=== PATIENT | male | born 1965 | race Caucasian/White ===

== ENCOUNTER 2016-04-13 13:20 | Emergency (ER) | payer BC ==
[2016-04-13 13:33] VITALS: BP 154/95
--- NOTE | 2016-04-13 14:21 | EDM.PDOC ---
<Carline Lombardo - Last Filed: 04/13/16 15:04> ED HPI RENAL/ - General Chief Complaint: Genitourinary Problem Stated Complaint: [id number] PAIN IN GROIN AREA Time Seen by Provider: 04/13/16 14:12 Source of Information: Reports: Patient History Limitations: Reports: No limitations - History of Present Illness INITIAL COMMENTS - FREE TEXT/NARRATIVE: Patient states he began having a pain this morning approximately 0800 in the right testicle. He states the pain has progressively gotten worse today. He states the right testicle has progressively gotten more swollen and the pain is radiating up into the groin. He denies fever and chills, vomiting or diarrhea. He admits to nausea with the pain. He admits to a hx. epididymitis. Symptom Onset Date: 04/13/16 Symptom Onset Time: 08:00 Location: Reports: scrotal (right) Quality: Reports: ache Severity: severe Worsens with: Reports: urinating Associated Symptoms: Reports: no other symptoms - Related Data Allergies/ADRs: Allergies Allergy/AdvReac Type Severity Reaction Status Date / Time Penicillins Allergy Cannot Verified 04/13/16 13:30 Remember Home Meds: Home Meds . [No Known Home Meds] 04/13/16 [History] Past Medical History HEENT History: Reports: None Cardiovascular History: Reports: None Respiratory History: Reports: None Gastrointestinal History: Reports: None Genitourinary History: Reports: None Neurological History: Reports: None Psychiatric History: Reports: None Endocrine/Metabolic History: Reports: Obesity/BMI 30+ Hematologic History: Reports: None Immunologic History: Reports: None Oncologic (Cancer) History: Reports: None Dermatologic History: Reports: None - Infectious Disease History Infectious Disease History: Reports: Chicken pox - Past Surgical History Head Surgeries/Procedures: Reports: None Other Musculoskeletal Surgeries/Procedures:: surgury--knee and wrist Social & Family History - Tobacco Use Smoking Status *Q: Never Smoker Second Hand Smoke Exposure: No - Caffeine Use Caffeine Use: Reports: Soda - Recreational Drug Use Recreational Drug Use: No ED ROS GENERAL - Review of Systems Review Of Systems: ROS reveals no pertinent complaints other than HPI. ED EXAM, RENAL/ - Physical Exam Exam: See Below Exam Limited By: No limitations General Appearance: alert, WD/WN, no apparent distress Eye Exam: bilateral eye: normal inspection Ears: normal external exam, normal canal, hearing grossly normal, normal TMs Nose: normal inspection, normal mucosa, no blood Throat/Mouth: Normal inspection, Normal lips, Normal teeth, Normal gums, Normal oropharynx, Normal voice, No airway compromise Head: atraumatic, normocephalic Neck: normal inspection, supple, non-tender, full range of motion Respiratory/Chest: no respiratory distress, lungs clear, normal breath sounds, no accessory muscle use, chest non-tender Cardiovascular: normal peripheral pulses, regular rate, rhythm, no edema, no gallop, no JVD, no murmur, no rub GI/Abdominal: normal bowel sounds, soft, non tender, no organomegaly, no distention, no abnormal bruit, no mass (Male) Exam: No hernia, Scrotal swelling, Scrotum tenderness (R), Testicular tenderness (R) Rectal (Males) Exam: Deferred Back Exam: normal inspection, full range of motion, NT Extremities: normal inspection, normal range of motion, non-tender, normal capillary refill, no pedal edema Neurological: alert, oriented, CN II-XII intact, normal cognition, normal gait, normal reflexes, no motor/sensory deficits Psychiatric: normal affect, normal mood Skin Exam: Warm, Dry, Intact, Normal color, No rash Lymphatic: no adenopathy Course - Vital Signs Last Recorded V/S: Last Vital Signs Temp Pulse 78 04/13/16 13:27 Resp 16 04/13/16 13:27 BP 154/95 H 04/13/16 13:32 Pulse Ox 95 04/13/16 13:27 - Orders/Labs/Meds Labs: Laboratory Tests 04/13/16 Range/Units 15:10 Urine Color Yellow (YELLOW) Urine Appearance Clear (CLEAR) Urine pH 5.5 (5.0-9.0) Ur Specific [place] 1.015 (1.005-1.030) Urine Protein Negative (NEGATIVE) Urine Glucose (UA) Negative (NEGATIVE) Urine Ketones Trace H (NEGATIVE) Urine Occult Blood Negative (NEGATIVE) Urine Nitrite Negative (NEGATIVE) Urine Bilirubin Negative (NEGATIVE) Urine Urobilinogen 0.2 (0.2-1.0) mg/dL Ur Leukocyte Esterase Negative (NEGATIVE) Urine RBC Not seen /HPF Urine WBC Not seen (0-5/HPF) /HPF Ur Epithelial Cells Rare /HPF - Radiology Interpretation Free Text/Narrative:: Testicular US: RIght epididymitis, calcific density in the right testis, small right hydrocele. See Rad report. Departure - Departure Time of Disposition: 15:13 Disposition: Home, Self-Care 01 Condition: fair Clinical Impression: Epididymitis Instructions: Epididymitis Forms: ED Department Discharge Additional Instructions: Rest, Ice, Elevate [place] 325/5m by mouth every 4-6 hours as needed for pain Ciprofloxacin 500m orally twice daily for 14 days. Naprosyn 500m orally twice daily with meals Make an appointment with urology to follow up for epididimytis, small right hydrocele, and a calcific density in the right teste. <Inderjit Thompson - Last Filed: 04/13/16 16:37> Course - Re-Assessments/Exams Free Text/Narrative Re-Assessment/Exam: 04/13/16 16:37 FOR THIS ENCOUNTER THE PATIENT WAS SEEN IN CONJUNCTION WITH [facility] STUDENT CARLINE LOMBARDO. ALL PATIENT CARE AND/OR PROCEDURE(S), DIAGNOSTIC ORDERS, MEDICATION(S) AND TREATMENT ORDERS, DISPOSITION ORDERS/PLANNING, AND DISCHARGE/FOLLOW UP INSTRUCTIONS WERE UNDER MY DIRECT SUPERVISION. jose
== END 2016-04-13 15:36 | disposition home or self-care (01) ==
LOC: DL.ED 13:20
DX: N45.1 Epididymitis (principal); E66.9 Obesity, unspecified; Z88.0 Allergy status to penicillin
CPT/HCPCS: 76870; 81001; 99284

== ENCOUNTER 2020-06-03 07:47 | Inpatient (IN) | payer BC ==
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
[2020-06-03] MEDS ORDERED: Ampicillin/Sulbactam Na 3 GM in Sodium Chloride 0.9% 100 ML IV ONE (08:56)
[2020-06-03] MEDS ORDERED: fentaNYL 100 MCG/2 ML SDV IVPUSH ONE (08:59)
--- NOTE | 2020-06-03 09:04 | CR ---
PROCEDURE INFORMATION: Exam: XR Left Knee Exam date and time: 06/03/2020 8:32 AM Age: 54 years old Clinical indication: Cellulitis; Lower leg; Left; Prior surgery; Surgery date: 6+ months; Surgery type: Knee surgery many years ago; Additional info: Lower extremity cellulitis TECHNIQUE: Imaging protocol: XR Left knee. Views: 1 or 2 views. COMPARISON: No relevant prior studies available. FINDINGS: Bones/joints: Screw tips are embedded in the lateral femoral condyle. The overlying bone is sclerotic and the cortical margin is irregular, but smooth, indicating old healed injury. There is a smoothly corticated ossified body measuring 10 x 7 mm adjacent to the lateral corner of tibial plateau also likely related to old trauma. Lateral joint space narrowing which is approaching pathologic dimensions. Medial and lateral femorotibial degenerative spurring and patellofemoral degenerative spurring. No fracture or joint effusion. No joint body. Soft tissues: Normal. IMPRESSION: 1. Old healed injury involving the lateral knee including femur and tibia. No acute fracture. 2. Tricompartmental knee osteoarthrosis. No osteonecrosis. 3. Normal knee soft tissues.
--- NOTE | 2020-06-03 09:05 | CR ---
PROCEDURE INFORMATION: Exam: XR Left Tibia and Fibula Exam date and time: 06/03/2020 8:35 AM Age: 54 years old Clinical indication: Cellulitis; Lower leg; Left; Prior surgery; Surgery date: 6+ months; Surgery type: Knee surgery many years ago; Additional info: Lower extremity cellulitis TECHNIQUE: Imaging protocol: XR Left tibia and fibula. Views: 2 views. COMPARISON: No relevant prior studies available. FINDINGS: Bones/joints: Normal mineralization and alignment. No fracture, degenerative spur, osseous erosion, joint effusion, joint body or other deformity. Soft tissues: Normal. IMPRESSION: Normal.
[2020-06-03] MEDS ORDERED: Ondansetron 4 MG Tab.DIS PO PRN (09:35)
[2020-06-03] MEDS ORDERED: Ketorolac 30 MG/ML SDV IVPUSH PRN (09:35)
[2020-06-03] MEDS ORDERED: Ibuprofen 600 MG Tab PO PRN (09:35)
[2020-06-03] MEDS: Enoxaparin 40 MG/0.4 ML Syringe SUBCUT SCH (10:20)
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
--- NOTE | 2020-06-03 12:48 | US ---
PROCEDURE INFORMATION: Exam: US Duplex Left Lower Extremity Veins, Limited Exam date and time: 06/03/2020 11:53 AM Age: 54 years old Clinical indication: Pain; Edema, localized; Lower extremity, left; Leg, lower; Additional info: Severe pain and swelling L lower leg TECHNIQUE: Imaging protocol: Real-time Duplex ultrasound of the Left Lower Extremity with 2-D carpio scale, color Doppler flow and spectral waveform analysis with image documentation. Limited exam focused on the left lower extremity veins. COMPARISON: No relevant prior studies available. FINDINGS: Left deep veins: Unremarkable. The common femoral, femoral, proximal profunda femoral and popliteal veins are patent without thrombus. Normal Doppler waveforms. Normal compressibility and/or augmentation response. Left superficial veins: Unremarkable. Saphenofemoral junction is patent without thrombus. Soft tissues: Below the knee there is soft tissue swelling. IMPRESSION: No evidence of deep vein thrombosis.
[2020-06-03] MEDS: Ampicillin/Sulbactam Na 3 GM in Sodium Chloride 0.9% 100 ML IV SCH ×2 (14:43→21:35)
[2020-06-03] MEDS: Sodium Chloride 0.9% 10 ML Syringe FLUSH PRN ×2 (14:45→16:23)
[2020-06-04] MEDS: Ampicillin/Sulbactam Na 3 GM in Sodium Chloride 0.9% 100 ML IV SCH ×4 (03:51→21:20)
[2020-06-04 07:07] LABS: ANION GAP 12.9 mEq/L (7-13)
--- NOTE | 2020-06-04 09:07 | PCM.PN ---
- General Info Date of Service: 06/04/20 Admission Dx/Problem (Free Text): Admission Diagnosis/Problem Admission Diagnosis/Problem Cellulitis Subjective Update: Robi is doing better this morning, although he does state it is still quite painful to stand on that leg. He states his pain was well controlled overnight, was able to get a lot of sleep. Nursing reports no issues overnight, no fevers - Patient Data Vitals - Most Recent: Last Vital Signs Temp 98.5 F 06/04/20 03:55 Pulse 71 06/04/20 03:55 Resp 16 06/04/20 03:55 BP 132/83 06/04/20 03:55 Pulse Ox 96 06/04/20 03:55 Weight - Most Recent: 230 lb 6.4 oz I&O - Last 24 Hours: Intake & Output 06/03/20 06/04/20 06/04/20 22:59 06:59 14:59 Intake Total 1092 500 Balance 1092 500 Lab Results Last 24 Hours: Laboratory Results - last 24 hr 06/03/20 06/03/20 06/04/20 Range/Units 08:14 08:17 06:25 WBC 12.5 H (5.0-10.0) 10^3/uL RBC 5.37 (4.6-6.2) 10^6/uL Hgb 16.1 (14.0-18.0) g/dL Hct 49.3 (40.0-54.0) % MCV 91.8 (80-100) fL MCH 30.0 (27.0-34.0) pg MCHC 32.7 L (33.0-35.0) g/dL Plt Count 238 (150-450) 10^3/uL Neut % (Auto) 80.3 H (42.2-75.2) % Lymph % (Auto) 8.8 L (20.5-50.1) % [place] % (Auto) 9.3 H (2-8) % Eos % (Auto) 1.3 (1.0-3.0) % Baso % (Auto) 0.3 (0.0-1.0) % D-Dimer, Quantitative 417 H (0-400) ng/mL Sodium (136-145) mmol/L Potassium (3.5-5.1) mmol/L Chloride (98-107) mmol/L Carbon Dioxide (21-32) mmol/L Anion Gap (7-13) mEq/L BUN (7-18) mg/dL Creatinine (0.70-1.30) mg/dL Est Cr Clr Drug Dosing mL/min Estimated GFR (MDRD) Glucose (70-99) mg/dL Calcium (8.5-10.1) mg/dL SARS-CoV-2 RNA (TAMMY) Positive H (NEGATIVE) 06/04/20 Range/Units 06:25 WBC (5.0-10.0) 10^3/uL RBC (4.6-6.2) 10^6/uL Hgb (14.0-18.0) g/dL Hct (40.0-54.0) % MCV (80-100) fL MCH (27.0-34.0) pg MCHC (33.0-35.0) g/dL Plt Count (150-450) 10^3/uL Neut % (Auto) (42.2-75.2) % Lymph % (Auto) (20.5-50.1) % [place] % (Auto) (2-8) % Eos % (Auto) (1.0-3.0) % Baso % (Auto) (0.0-1.0) % D-Dimer, Quantitative (0-400) ng/mL Sodium 139 (136-145) mmol/L Potassium 4.9 (3.5-5.1) mmol/L Chloride 101 (98-107) mmol/L Carbon Dioxide 30 (21-32) mmol/L Anion Gap 12.9 (7-13) mEq/L BUN 15 (7-18) mg/dL Creatinine 1.56 H (0.70-1.30) mg/dL Est Cr Clr Drug Dosing 52.37 mL/min Estimated GFR (MDRD) 47 Glucose 110 H (70-99) mg/dL Calcium 8.5 (8.5-10.1) mg/dL SARS-CoV-2 RNA (TAMMY) (NEGATIVE) Moises Results Last 24 Hours: Microbiology 06/03/20 08:17 Aerobic Blood Culture - Preliminary Blood - Venous - Iv Start NO GROWTH AFTER 1 DAY Anaerobic Blood Culture - Final 06/03/20 08:13 Aerobic Blood Culture - Preliminary Blood - Venous - Iv Start NO GROWTH AFTER 1 DAY Anaerobic Blood Culture - Final Med Orders - Current: Current Medications Enoxaparin Sodium (Enoxaparin 40 Mg/0.4 Ml Syringe) 40 mg SUBCUT DAILY [facility] Last Admin: 06/03/20 10:20 Dose: 40 mg Documented by: Ampicillin Sodium/Sulbactam (Sodium 3 gm/ Sodium Chloride) 100 mls @ 100 mls/hr IV Q6H [facility] Last Admin: 06/04/20 03:51 Dose: 100 mls/hr Documented by: Ondansetron HCl (Ondansetron 4 Mg Tab.Dis) 4 mg PO Q6H PRN PRN Reason: nausea, able to take PO Sodium Chloride (Sodium Chloride 0.9% 10 Ml Syringe) 10 ml FLUSH ASDIRECTED PRN PRN Reason: Keep Vein Open Last Admin: 06/03/20 16:23 Dose: 10 ml Documented by: Vancomycin HCl (Pharmacy To Dose - Vancomycin) 1 dose .XX ASDIRECTED [facility] Discontinued Medications Fentanyl (Fentanyl 100 Mcg/2 Ml Sdv) 50 mcg IVPUSH ONETIME ONE Stop: 06/03/20 09:00 Last Admin: 06/03/20 09:12 Dose: 50 mcg Documented by: Ampicillin Sodium/Sulbactam (Sodium 3 gm/ Sodium Chloride) 100 mls @ 100 mls/hr IV ONETIME ONE Stop: 06/03/20 09:55 Last Infusion: 06/03/20 10:10 Dose: Infused Documented by: Vancomycin HCl 1.25 gm/ Sodium (Chloride) 250 mls @ 166.667 mls/hr IV Q12H [facility] Last Admin: 06/03/20 22:41 Dose: 167 mls/hr Documented by: Ibuprofen (Ibuprofen 600 Mg Tab) 600 mg PO Q6H PRN PRN Reason: Pain (mild 1-3) Ketorolac Tromethamine (Ketorolac 30 Mg/Ml Sdv) 30 mg IVPUSH Q6H PRN PRN Reason: Pain (moderate 4-6) Last Admin: 06/03/20 21:31 Dose: 30 mg Documented by: - Exam Physical Findings Comments:: General: Robi is a 54-year-old man in no acute distress Oropharynx is clear, mucous membranes are moist Lungs: Clear to auscultation Left leg: The erythema has cleared for much of the upper part of the affected area, below his knee. It does still involve up to about the midportion of his lower leg. There is still significant swelling of his foot, I would put this at 2-3+ pitting edema. No streaking of any other portion of his leg - Patient Data Lab Results Last 24 hrs: Laboratory Results - last 24 hr 06/03/20 06/03/20 06/04/20 Range/Units 08:14 08:17 06:25 WBC 12.5 H (5.0-10.0) 10^3/uL RBC 5.37 (4.6-6.2) 10^6/uL Hgb 16.1 (14.0-18.0) g/dL Hct 49.3 (40.0-54.0) % MCV 91.8 (80-100) fL MCH 30.0 (27.0-34.0) pg MCHC 32.7 L (33.0-35.0) g/dL Plt Count 238 (150-450) 10^3/uL Neut % (Auto) 80.3 H (42.2-75.2) % Lymph % (Auto) 8.8 L (20.5-50.1) % [place] % (Auto) 9.3 H (2-8) % Eos % (Auto) 1.3 (1.0-3.0) % Baso % (Auto) 0.3 (0.0-1.0) % D-Dimer, Quantitative 417 H (0-400) ng/mL Sodium (136-145) mmol/L Potassium (3.5-5.1) mmol/L Chloride (98-107) mmol/L Carbon Dioxide (21-32) mmol/L Anion Gap (7-13) mEq/L BUN (7-18) mg/dL Creatinine (0.70-1.30) mg/dL Est Cr Clr Drug Dosing mL/min Estimated GFR (MDRD) Glucose (70-99) mg/dL Calcium (8.5-10.1) mg/dL SARS-CoV-2 RNA (TAMMY) Positive H (NEGATIVE) 06/04/20 Range/Units 06:25 WBC (5.0-10.0) 10^3/uL RBC (4.6-6.2) 10^6/uL Hgb (14.0-18.0) g/dL Hct (40.0-54.0) % MCV (80-100) fL MCH (27.0-34.0) pg MCHC (33.0-35.0) g/dL Plt Count (150-450) 10^3/uL Neut % (Auto) (42.2-75.2) % Lymph % (Auto) (20.5-50.1) % [place] % (Auto) (2-8) % Eos % (Auto) (1.0-3.0) % Baso % (Auto) (0.0-1.0) % D-Dimer, Quantitative (0-400) ng/mL Sodium 139 (136-145) mmol/L Potassium 4.9 (3.5-5.1) mmol/L Chloride 101 (98-107) mmol/L Carbon Dioxide 30 (21-32) mmol/L Anion Gap 12.9 (7-13) mEq/L BUN 15 (7-18) mg/dL Creatinine 1.56 H (0.70-1.30) mg/dL Est Cr Clr Drug Dosing 52.37 mL/min Estimated GFR (MDRD) 47 Glucose 110 H (70-99) mg/dL Calcium 8.5 (8.5-10.1) mg/dL SARS-CoV-2 RNA (TAMMY) (NEGATIVE) Result Diagrams: 06/04/20 06:25 06/04/20 06:25 Moises Results Last 24 hrs: Microbiology 06/03/20 08:17 Aerobic Blood Culture - Preliminary Blood - Venous - Iv Start NO GROWTH AFTER 1 DAY Anaerobic Blood Culture - Final 06/03/20 08:13 Aerobic Blood Culture - Preliminary Blood - Venous - Iv Start NO GROWTH AFTER 1 DAY Anaerobic Blood Culture - Final Sepsis Event Note - Evaluation Sepsis Screening Result: No Definite Risk - Focused Exam Vital Signs: Vital Signs Temp Pulse Resp BP Pulse Ox 06/04/20 03:55 98.5 F 71 16 132/83 96 06/04/20 00:00 97.8 F 61 18 114/61 92 L - Problem List & Annotations (1) Cellulitis SNOMED Code(s): 424117870 Code(s): L03.90 - CELLULITIS, UNSPECIFIED Status: Acute Current Visit: Yes Qualifiers: Site of cellulitis: extremity Site of cellulitis of extremity: lower extremity Laterality: left Qualified Code(s): L03.116 - Cellulitis of left lower limb (2) COVID-19 SNOMED Code(s): 668104141 Code(s): U07.1 - COVID-19 Status: Acute Current Visit: Yes Annotation/Comment:: Asymptomatic, but present in context of severe cellulitis (3) Acute kidney injury SNOMED Code(s): 77871481, 84764189 Code(s): N17.9 - ACUTE KIDNEY FAILURE, UNSPECIFIED Status: Acute Priorit y: High Current Visit: Yes - Problem List Review Problem List Initiated/Reviewed/Updated: Yes - My Orders Last 24 Hours: My Active Orders 06/03/20 09:35 Oxygen Therapy [RC] PRN Up ad Jackie [RC] ASDIRECTED VTE/DVT Education [RC] PER UNIT ROUTINE Vital Signs [RC] 00,04,08,12,16,20 Ondansetron [Zofran ODT] 4 mg PO Q6H PRN Resuscitation Status Routine 06/03/20 09:36 Intake and Output [RC] 06,14,22 06/03/20 09:45 Enoxaparin [Lovenox] 40 mg SUBCUT DAILY Pharmacy to Dose - Vancomycin 1 dose .XX ASDIRECTED 06/03/20 10:31 Sodium Chloride 0.9% [Saline Flush] 10 ml FLUSH ASDIRECTED PRN Isolation [COMM] Routine 06/03/20 Lunch Regular Diet [DIET] 06/03/20 15:00 Ampicillin/Sulbactam Na [Unasyn] 3 gm Sodium Chloride 0.9% [Normal Saline] 100 ml IV Q6H 06/05/20 05:11 CBC WITH AUTO DIFF [HEME] AM RENAL FUNCTION PANEL,RFP [CHEM] AM - Plan Plan:: Assessment: 1. Severe cellulitis of the lower left leg 2. Asymptomatic COVID-19, positive through screening 3. Acute kidney injury, differential would include cellulitis as well as administration of IV antibiotic, and presence of COVID-19 Plan: 1. Continue Unasyn, 3 g IV every 6 hours 2. Discontinue vancomycin 3. Continue Lovenox, 40 mg subcu daily for VTE prophylaxis 4. Recheck CBC and renal panel in the a.m., and reassess clinically 5. Anticipate possible discharge tomorrow, if his leg continues to improve
[2020-06-04] MEDS: Enoxaparin 40 MG/0.4 ML Syringe SUBCUT SCH (11:03)
[2020-06-04] MEDS ORDERED: Acetaminophen/HYDROcodone 325-5 MG Tab PO PRN (16:34)
[2020-06-04] MEDS ORDERED: Acetaminophen 325 MG Tab PO PRN (16:35)
[2020-06-04] MEDS ORDERED: Morphine 10 MG/ML SDV IVPUSH PRN (16:36)
[2020-06-04] MEDS: Sodium Chloride 0.9% 10 ML Syringe FLUSH PRN ×2 (21:20→22:39)
[2020-06-05] MEDS: Sodium Chloride 0.9% 10 ML Syringe FLUSH PRN ×2 (03:10→04:24)
[2020-06-05] MEDS: Ampicillin/Sulbactam Na 3 GM in Sodium Chloride 0.9% 100 ML IV SCH ×3 (03:11→11:35)
[2020-06-05 07:14] LABS: ANION GAP 14.6 mEq/L (7-13)
[2020-06-05] MEDS: Enoxaparin 40 MG/0.4 ML Syringe SUBCUT SCH (09:01)
[2020-06-05 09:06] VITALS: BP 134/94; PULSE 77
--- NOTE | 2020-06-05 09:24 | PCM.DCSUM1 ---
Discharge Summary - Hospital Course Free Text/Narrative:: Robi is a 54-year-old man who was admitted 2 days ago with cellulitis in his lower left extremity. There was no inciting injury or event to this. He presented to clinic with a severely swollen and reddened lower left leg. He had had 24 hours of fevers and chills as well as increasing pain in that leg. He was admitted for IV fluid rehydration as well as IV Unasyn. He responded quite well to the IV Unasyn, by the morning of hospital day #1, the swelling had increased slightly and his pain had started to decrease. By the morning of hospital day #2, he was able to walk on this normally, and swelling had significantly decreased. The margin of erythema had moved to just below his knee down all the way towards his ankle. He was 24 hours afebrile as of the morning of hospital day #2 - Discharge Data Discharge Date: 06/05/20 Discharge Disposition: Home, Self-Care 01 Condition: Good - Referral to Home Health Primary Care Physician: PCP Unobtainable - Discharge Diagnosis/Problem(s) (1) Cellulitis SNOMED Code(s): 780918802 ICD Code: L03.90 - CELLULITIS, UNSPECIFIED Status: Acute Qualifiers: Site of cellulitis: extremity Site of cellulitis of extremity: lower extremity Laterality: left Qualified Code(s): L03.116 - Cellulitis of left lower limb (2) COVID-19 SNOMED Code(s): 354621041 ICD Code: U07.1 - COVID-19 Status: Acute Problem Details: Asymptomatic, but present in context of severe cellulitis (3) Acute kidney injury SNOMED Code(s): 16599224, 70711375 ICD Code: N17.9 - ACUTE KIDNEY FAILURE, UNSPECIFIED Status: Acute Priority: High - Discharge Plan *PRESCRIPTION DRUG MONITORING PROGRAM REVIEWED*: Not Applicable *COPY OF PRESCRIPTION DRUG MONITORING REPORT IN PATIENT [place]: Not Applicable Prescriptions/Med Rec: Amoxicillin/Clavulanate K [Augmentin 875-125 MG] 1 tab PO BID 10 Days #20 tablet Home Medications: Home Meds Amoxicillin/Clavulanate K [Augmentin 875-125 MG] 1 tab PO BID 10 Days #20 tablet 06/05/20 [Rx] Patient Handouts: Amoxicillin; Clavulanic Acid Tablets, Cellulitis, Adult Referrals: Rich Mcgrath MD [Physician] - - Discharge Summary/Plan Comment DC Time >30 min.: No Discharge Summary/Plan Comment: Discharge diagnoses: 1. 54-year-old man with cellulitis of the left lower extremity Discharge plan: 1. He is sent home on Augmentin, 825 mg twice daily x10 days. He will follow-up with his primary care physician later this week or early next week. He was given careful instructions to follow-up immediately in the clinic or ER if the redness and pain returns, or does not continue to improve on a daily basis - Patient Data Vitals - Most Recent: Last Vital Signs Temp 97.6 F 06/05/20 08:00 Pulse 77 06/05/20 08:00 Resp 19 06/05/20 08:00 BP 134/94 H 06/05/20 08:00 Pulse Ox 97 06/05/20 08:00 Weight - Most Recent: 230 lb 6.4 oz I&O - Last 24 hours: Intake & Output 06/04/20 06/05/20 06/05/20 22:59 06:59 14:59 Intake Total 534 203 Balance 534 203 Lab Results - Last 24 hrs: Laboratory Results - last 24 hr 06/05/20 06/05/20 Range/Units 06:35 06:35 WBC 9.1 (5.0-10.0) 10^3/uL RBC 5.46 (4.6-6.2) 10^6/uL Hgb 16.2 (14.0-18.0) g/dL Hct 49.8 (40.0-54.0) % MCV 91.2 (80-100) fL MCH 29.7 (27.0-34.0) pg MCHC 32.5 L (33.0-35.0) g/dL Plt Count 270 (150-450) 10^3/uL Neut % (Auto) 66.9 (42.2-75.2) % Lymph % (Auto) 19.4 L (20.5-50.1) % [place] % (Auto) 10.5 H (2-8) % Eos % (Auto) 2.9 (1.0-3.0) % Baso % (Auto) 0.3 (0.0-1.0) % Sodium 139 (136-145) mmol/L Potassium 4.6 (3.5-5.1) mmol/L Chloride 101 (98-107) mmol/L Carbon Dioxide 28 (21-32) mmol/L Anion Gap 14.6 H (7-13) mEq/L BUN 15 (7-18) mg/dL Creatinine 1.36 H (0.70-1.30) mg/dL Est Cr Clr Drug Dosing 60.07 mL/min Estimated GFR (MDRD) 55 BUN/Creatinine Ratio 11.0 (No establ ref range) Glucose 104 H (70-99) mg/dL Calcium 8.7 (8.5-10.1) mg/dL Phosphorus 2.8 (2.6-4.7) mg/dL Albumin 2.9 L (3.4-5.0) g/dL ÁNGEL Results - Last 24 hrs: Microbiology 06/03/20 08:17 Aerobic Blood Culture - Preliminary Blood - Venous - Iv Start NO GROWTH AFTER 2 DAYS Anaerobic Blood Culture - Final 06/03/20 08:13 Aerobic Blood Culture - Preliminary Blood - Venous - Iv Start NO GROWTH AFTER 2 DAYS Anaerobic Blood Culture - Final Med Orders - Current: Current Medications Acetaminophen (Acetaminophen 325 Mg Tab) 650 mg PO Q6H PRN PRN Reason: Pain (mild 1-3) Hydrocodone Bitart/Acetaminophen (Acetaminophen/Hydrocodone 325-5 Mg Tab) 1 tab PO Q6H PRN PRN Reason: Pain (moderate 4-6) Enoxaparin Sodium (Enoxaparin 40 Mg/0.4 Ml Syringe) 40 mg SUBCUT DAILY [facility] Last Admin: 06/05/20 09:01 Dose: 40 mg Documented by: Ampicillin Sodium/Sulbactam (Sodium 3 gm/ Sodium Chloride) 100 mls @ 100 mls/hr IV Q6H [facility] Last Admin: 06/05/20 09:00 Dose: 100 mls/hr Documented by: Morphine Sulfate (Morphine 10 Mg/Ml Sdv) 8 mg IVPUSH Q4H PRN PRN Reason: Pain (severe 7-10) Ondansetron HCl (Ondansetron 4 Mg Tab.Dis) 4 mg PO Q6H PRN PRN Reason: nausea, able to take PO Sodium Chloride (Sodium Chloride 0.9% 10 Ml Syringe) 10 ml FLUSH ASDIRECTED PRN PRN Reason: Keep Vein Open Last Admin: 06/05/20 04:24 Dose: 10 ml Documented by: Discontinued Medications Fentanyl (Fentanyl 100 Mcg/2 Ml Sdv) 50 mcg IVPUSH ONETIME ONE Stop: 06/03/20 09:00 Last Admin: 06/03/20 09:12 Dose: 50 mcg Documented by: Ampicillin Sodium/Sulbactam (Sodium 3 gm/ Sodium Chloride) 100 mls @ 100 mls/hr IV ONETIME ONE Stop: 06/03/20 09:55 Last Infusion: 06/03/20 10:10 Dose: Infused Documented by: Vancomycin HCl 1.25 gm/ Sodium (Chloride) 250 mls @ 166.667 mls/hr IV Q12H [facility] Last Admin: 06/03/20 22:41 Dose: 167 mls/hr Documented by: Ibuprofen (Ibuprofen 600 Mg Tab) 600 mg PO Q6H PRN PRN Reason: Pain (mild 1-3) Ketorolac Tromethamine (Ketorolac 30 Mg/Ml Sdv) 30 mg IVPUSH Q6H PRN PRN Reason: Pain (moderate 4-6) Last Admin: 06/03/20 21:31 Dose: 30 mg Documented by: Vancomycin HCl (Pharmacy To Dose - Vancomycin) 1 dose .XX ASDIRECTED [facility]
== END 2020-06-05 12:40 | disposition home or self-care (01) | DRG 383 ==
LOC: DL.ED 07:47 → DL.MS 08:56 → UNDOADMIN 08:56 → DL.MS 19:23
PROVIDERS: ADMIT Family Medicine; ATTEND Family Medicine
PROC: 8E0ZXY6 Isolation (ICD-10-PCS; principal; 2020-06-03)
DX: L03.116 Cellulitis of left lower limb (principal); U07.1 COVID-19; N17.9 Acute kidney failure, unspecified; Z90.49 Acquired absence of other specified parts of digestive tract; Z98.890 Other specified postprocedural states
CPT/HCPCS: 36415; 73560-LT; 73590-LT; 80048; 80053; 80069; 83605; 85025; 85379; 86140; 87040; 93971; 99284; 99284-25; J0295; J1650; J1885; J3010; J3370; J7050; U0002

== ENCOUNTER 2020-12-30 22:46 | Inpatient (IN) | payer BC ==
[2020-12-30] MEDS: Sodium Chloride 0.9% 10 ML Syringe FLUSH PRN (23:21)
[2020-12-30 23:45] LABS: ANION GAP 14.2 mEq/L (7-13)
[2020-12-31] MEDS: Sodium Chloride 0.9% 1,000 ML IV ONE ×2 (00:13→02:03)
--- NOTE | 2020-12-31 00:17 | EDM.PDOC ---
ED HPI GENERAL MEDICAL PROBLEM - General Chief Complaint: Skin Complaint Stated Complaint: CELLUTITUS Time Seen by Provider: 12/30/20 23:15 Source of Information: Reports: Patient History Limitations: Reports: No Limitations - History of Present Illness INITIAL COMMENTS - FREE TEXT/NARRATIVE: 55 y/o M c/o sudden onset reddness and swelling of his L lower leg that started this morning. initially the redness began around his ankle and throughout the day progressed uo to just below the knee. Similar cellulitis in the past. Reports subjective fever, chills. Has been taking tylenol today. Denies other medical hx, meds, allergies. 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 Denies miller, vision prob, cp, db, abd pn, other extremity concerns. Left Lower Leg Pain Score (Numeric/FACES): 6 - Related Data Allergies Allergy/AdvReac Type Severity Reaction Status Date / Time Penicillins Allergy Cannot Verified 12/30/20 23:05 Remember Home Meds: Home Meds . [No Known Home Meds] 12/30/20 [History] Past Medical History HEENT History: Reports: None Cardiovascular History: Reports: None Respiratory History: Reports: None Gastrointestinal History: Reports: None Genitourinary History: Reports: None Musculoskeletal History: Reports: None Neurological History: Reports: None Psychiatric History: Reports: None Endocrine/Metabolic History: Reports: Obesity/BMI 30+ Hematologic History: Reports: None Immunologic History: Reports: None Oncologic (Cancer) History: Reports: None Dermatologic History: Reports: None - Infectious Disease History Infectious Disease History: Reports: Chicken Pox - Past Surgical History Head Surgeries/Procedures: Reports: None HEENT Surgical History: Reports: Adenoidectomy, Myringotomy w Tube(s) Cardiovascular Surgical History: Reports: None Respiratory Surgical History: Reports: None GI Surgical History: Reports: None Endocrine Surgical History: Reports: None Neurological Surgical History: Reports: None Musculoskeletal Surgical History: Reports: Other (See Below) Other Musculoskeletal Surgeries/Procedures:: surgury--knee and wrist Social & Family History - Family History Family Medical History: No Pertinent Family History - Tobacco Use Tobacco Use Status *Q: Never Tobacco User - Caffeine Use Caffeine Use: Reports: Coffee - Recreational Drug Use Recreational Drug Use: No ED ROS GENERAL - Review of Systems Review Of Systems: Comprehensive ROS is negative, except as noted in HPI. ED EXAM, SKIN/RASH Exam: See Below Exam Limited By: No Limitations General Appearance: Alert, No Apparent Distress Throat/Mouth: Normal Inspection, Normal Lips, Normal Teeth, Normal Gums, Normal Oropharynx, Normal Voice, No Airway Compromise Head: Atraumatic, Normocephalic Neck: Normal Inspection, Supple, Non-Tender, Full Range of Motion Respiratory/Chest: No Respiratory Distress, Lungs Clear, Normal Breath Sounds, No Accessory Muscle Use, Chest Non-Tender Cardiovascular: Normal Peripheral Pulses, Regular Rate, Rhythm, No Edema, No Gallop, No JVD, No Murmur, No Rub GI/Abdominal: Soft, Non-Tender (Male) Exam: Deferred Rectal (Males) Exam: Deferred Back Exam: Normal Inspection, Full Range of Motion Extremities: Other (erythematous rash extending from L ankle up to just below the knee more anterior than posterior involvement. ) Neurological: Alert, Oriented, CN II-XII Intact, Normal Cognition, Normal Gait, Normal Reflexes, No Motor/Sensory Deficits Skin: Warm, Dry, Intact Course - Vital Signs Last Recorded V/S: Last Vital Signs Temp 99.1 F 12/30/20 23:06 Pulse 92 12/30/20 23:06 Resp 16 12/30/20 23:06 BP 137/80 12/30/20 23:06 Pulse Ox 96 12/30/20 23:06 - Orders/Labs/Meds Orders: Active Orders 24 hr Category Date Time Status Admission Diagnosis [ADT] Routine ADT 12/31/20 00:16 Ordered Admission Status [Patient Status] [ADT] Routine ADT 12/31/20 00:16 Active Peripheral IV Care [RC] . DIRECTED Care 12/30/20 23:12 Active CULTURE BLOOD [BC] Stat Lab 12/30/20 23:20 Received CULTURE BLOOD [BC] Stat Lab 12/30/20 23:30 Received REFLEX LACTIC ACID YES OR NO [CHEM] Routine Lab 12/30/20 23:56 Received Sodium Chloride 0.9% [Normal Saline] 1,000 ml Med 12/30/20 23:57 Active IV .BOLUS Sodium Chloride 0.9% [Saline Flush] Med 12/30/20 23:12 Active 10 ml FLUSH ASDIRECTED PRN Vancomycin 1,500 mg Med 12/30/20 23:55 Active Sodium Chloride 0.9% [Normal Saline] 500 ml IV ONETIME Blood Culture x2 Reflex Set [OM.PC] Stat Oth 12/30/20 23:12 Ordered Peripheral IV Insertion Adult [OM.PC] Routine Oth 12/30/20 23:12 Ordered Medication Orders Vancomycin HCl 1,500 mg/ (Sodium Chloride) 500 mls @ 333.333 mls/hr IV ONETIME ONE Stop: 12/31/20 01:24 Last Admin: 12/31/20 00:13 Dose: 333.333 mls/hr Documented by: KIM Sodium Chloride (Normal Saline) 1,000 mls @ 999 mls/hr IV .BOLUS ONE Stop: 12/31/20 00:57 Last Admin: 12/31/20 00:13 Dose: 999 mls/hr Documented by: KIM Sodium Chloride (Sodium Chloride 0.9% 10 Ml Syringe) 10 ml FLUSH ASDIRECTED PRN PRN Reason: Keep Vein Open Last Admin: 12/30/20 23:21 Dose: 10 ml Documented by: KIM Labs: Laboratory Tests 12/30/20 12/30/20 12/30/20 Range/Units 23:20 23:20 23:20 WBC 24.0 H (5.0-10.0) 10^3/uL RBC 5.33 (4.6-6.2) 10^6/uL Hgb 16.3 (14.0-18.0) g/dL Hct 48.2 (40.0-54.0) % MCV 90.4 (80-100) fL MCH 30.6 (27.0-34.0) pg MCHC 33.8 (33.0-35.0) g/dL Plt Count 311 (150-450) 10^3/uL Neut % (Auto) 93.0 H (42.2-75.2) % Lymph % (Auto) 3.1 L (20.5-50.1) % [place] % (Auto) 3.8 (2-8) % Eos % (Auto) 0.0 L (1.0-3.0) % Baso % (Auto) 0.1 (0.0-1.0) % D-Dimer, Quantitative (0-400) ng/mL Sodium 134 L (136-145) mmol/L Potassium 4.2 (3.5-5.1) mmol/L Chloride 100 (98-107) mmol/L Carbon Dioxide 24 (21-32) mmol/L Anion Gap 14.2 H (7-13) mEq/L BUN 18 (7-18) mg/dL Creatinine 1.64 H (0.70-1.30) mg/dL Est Cr Clr Drug Dosing 49.24 mL/min Estimated GFR (MDRD) 44 BUN/Creatinine Ratio 11.0 (No establ ref range) Glucose 225 H (70-99) mg/dL Lactic Acid 2.6 H* (0.4-2.0) mmol/L Calcium 8.8 (8.5-10.1) mg/dL Total Bilirubin 1.5 H (0.2-1.0) mg/dL AST 14 L (15-37) U/L ALT 26 (16-63) U/L Alkaline Phosphatase 61 (46-116) U/L C-Reactive Protein 5.7 H (0.0-0.9) mg/dL Total Protein 6.6 (6.4-8.2) g/dL Albumin 3.5 (3.4-5.0) g/dL Globulin 3.1 Albumin/Globulin Ratio 1.1 12/30/ Range/Units 23:20 WBC (5.0-10.0) 10^3/uL RBC (4.6-6.2) 10^6/uL Hgb (14.0-18.0) g/dL Hct (40.0-54.0) % MCV (80-100) fL MCH (27.0-34.0) pg MCHC (33.0-35.0) g/dL Plt Count (150-450) 10^3/uL Neut % (Auto) (42.2-75.2) % Lymph % (Auto) (20.5-50.1) % [place] % (Auto) (2-8) % Eos % (Auto) (1.0-3.0) % Baso % (Auto) (0.0-1.0) % D-Dimer, Quantitative 267 (0-400) ng/mL Sodium (136-145) mmol/L Potassium (3.5-5.1) mmol/L Chloride (98-107) mmol/L Carbon Dioxide (21-32) mmol/L Anion Gap (7-13) mEq/L BUN (7-18) mg/dL Creatinine (0.70-1.30) mg/dL Est Cr Clr Drug Dosing mL/min Estimated GFR (MDRD) BUN/Creatinine Ratio (No establ ref range) Glucose (70-99) mg/dL Lactic Acid (0.4-2.0) mmol/L Calcium (8.5-10.1) mg/dL Total Bilirubin (0.2-1.0) mg/dL AST (15-37) U/L ALT (16-63) U/L Alkaline Phosphatase (46-116) U/L C-Reactive Protein (0.0-0.9) mg/dL Total Protein (6.4-8.2) g/dL Albumin (3.4-5.0) g/dL Globulin Albumin/Globulin Ratio Meds: Medications Generic Name Dose Route Start Last Admin Trade Name Freq PRN Reason Stop Dose Admin Vancomycin HCl 1,500 mg/ 500 mls @ 333.333 mls/hr 12/30/20 23:55 12/31/20 00:13 Sodium Chloride IV 12/31/20 01:24 333.333 mls/hr ONETIME ONE Administration Sodium Chloride 1,000 mls @ 999 mls/hr 12/30/20 23:57 12/31/20 00:13 Normal Saline IV 12/31/20 00:57 999 mls/hr .BOLUS ONE Administration Sodium Chloride 10 ml 12/30/20 23:12 12/30/20 23:21 Sodium Chloride 0.9% 10 Ml Syringe FLUSH 10 ml ASDIRECTED PRN Administration Keep Vein Open - Re-Assessments/Exams Free Text/Narrative Re-Assessment/Exam: 12/31/20 00:10 The pt has a fast progressing cellulitis which he reports is similar to his previous cellulitis. I consulted with Dr. James who agreed to admit the pt for inpatient treatment of his cellulitis. Departure - Departure Time of Disposition: 00:23 Disposition: Home, Self-Care 01 Condition: Fair Clinical Impression: Cellulitis Qualifiers: Site of cellulitis: extremity Site of cellulitis of extremity: lower extremity Laterality: left Qualified Code(s): L03.116 - Cellulitis of left lower limb Elevated WBC count Qualifiers: Leukocytosis type: unspecified Qualified Code(s): D72.829 - Elevated white blood cell count, unspecified - Discharge Information *PRESCRIPTION DRUG MONITORING PROGRAM REVIEWED*: Not Applicable *COPY OF PRESCRIPTION DRUG MONITORING REPORT IN PATIENT [place]: Not Applicable Forms: ED Department Discharge Sepsis Event Note (ED) - Evaluation Sepsis Screening Result: No Definite Risk - Focused Exam Vital Signs: Vital Signs Temp Pulse Resp BP Pulse Ox 12/30/20 23:06 99.1 F 92 16 137/80 96 - My Orders Last 24 Hours: My Active Orders 12/30/20 23:12 Peripheral IV Care [RC] . DIRECTED Sodium Chloride 0.9% [Saline Flush] 10 ml FLUSH ASDIRECTED PRN Blood Culture x2 Reflex Set [OM.PC] Stat Peripheral IV Insertion Adult [OM.PC] Routine 12/30/20 23:20 CULTURE BLOOD [BC] Stat 12/30/20 23:30 CULTURE BLOOD [BC] Stat 12/30/20 23:55 Vancomycin 1,500 mg Sodium Chloride 0.9% [Normal Saline] 500 ml IV ONETIME 12/30/20 23:56 REFLEX LACTIC ACID YES OR NO [CHEM] Routine 12/30/20 23:57 Sodium Chloride 0.9% [Normal Saline] 1,000 ml IV .BOLUS 12/31/20 00:16 Admission Diagnosis [ADT] Routine Admission Status [Patient Status] [ADT] Routine - Assessment/Plan Last 24 Hours: My Active Orders 12/30/20 23:12 Peripheral IV Care [RC] . DIRECTED Sodium Chloride 0.9% [Saline Flush] 10 ml FLUSH ASDIRECTED PRN Blood Culture x2 Reflex Set [OM.PC] Stat Peripheral IV Insertion Adult [OM.PC] Routine 12/30/20 23:20 CULTURE BLOOD [BC] Stat 12/30/20 23:30 CULTURE BLOOD [BC] Stat 12/30/20 23:55 Vancomycin 1,500 mg Sodium Chloride 0.9% [Normal Saline] 500 ml IV ONETIME 12/30/20 23:56 REFLEX LACTIC ACID YES OR NO [CHEM] Routine 12/30/20 23:57 Sodium Chloride 0.9% [Normal Saline] 1,000 ml IV .BOLUS 12/31/20 00:16 Admission Diagnosis [ADT] Routine Admission Status [Patient Status] [ADT] Routine
[2020-12-31] MEDS ORDERED: Ondansetron 4 MG Tab.DIS PO PRN (01:19)
[2020-12-31] MEDS ORDERED: Docusate Sodium 100 MG Cap PO PRN (01:19)
[2020-12-31] MEDS ORDERED: Zolpidem 5 MG Tab PO PRN (01:19)
[2020-12-31] MEDS ORDERED: Acetaminophen/HYDROcodone 325-10 MG Tab PO PRN (01:19)
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
[2020-12-31] MEDS ORDERED: Levofloxacin/Dextrose 5%-Water 750 MG in Premix Bag 1 BAG IV SCH (01:30)
[2020-12-31] MEDS: Sodium Chloride 0.9% 1,000 ML IV SCH ×2 (01:55→23:11)
[2020-12-31] MEDS: Heparin Sodium 5,000 Units/ML Vial SUBCUT SCH ×3 (06:08→21:25)
[2020-12-31] MEDS: Acetaminophen 325 MG Tab PO PRN ×2 (06:14→18:37)
[2020-12-31 07:42] LABS: ANION GAP 11.1 mEq/L (7-13)
[2020-12-31] MEDS ORDERED: Water For Injection, Sterile 40 ML ONE (12:02)
--- NOTE | 2020-12-31 15:34 | PCM.PN ---
- General Info Date of Service: 12/31/20 Admission Dx/Problem (Free Text): Admission Diagnosis/Problem Admission Diagnosis/Problem Cellulitis Functional Status: Reports: Tolerating Diet - Review of Systems General: Reports: Fever (low grade) Pulmonary: Denies: Shortness of Breath Cardiovascular: Reports: Edema (left leg). Denies: Chest Pain Gastrointestinal: Denies: Abdominal Pain Genitourinary: Denies: Dysuria Musculoskeletal: Reports: Foot Pain (left leg) Neurological: Denies: Confusion - Patient Data Vitals - Most Recent: Last Vital Signs Temp 96.8 F L 12/31/20 12:00 Pulse 63 12/31/20 12:00 Resp 20 12/31/20 12:00 BP 114/65 12/31/20 12:00 Pulse Ox 96 12/31/20 12:00 Weight - Most Recent: 225 lb I&O - Last 24 Hours: Intake & Output 12/31/20 12/31/20 12/31/20 06:59 14:59 22:59 Intake Total 1950 600 Balance 1950 600 Lab Results Last 24 Hours: Laboratory Results - last 24 hr 12/30/20 12/30/20 12/30/20 Range/Units 23:20 23:20 23:20 WBC 24.0 H (5.0-10.0) 10^3/uL RBC 5.33 (4.6-6.2) 10^6/uL Hgb 16.3 (14.0-18.0) g/dL Hct 48.2 (40.0-54.0) % MCV 90.4 (80-100) fL MCH 30.6 (27.0-34.0) pg MCHC 33.8 (33.0-35.0) g/dL Plt Count 311 (150-450) 10^3/uL Neut % (Auto) 93.0 H (42.2-75.2) % Lymph % (Auto) 3.1 L (20.5-50.1) % [place] % (Auto) 3.8 (2-8) % Eos % (Auto) 0.0 L (1.0-3.0) % Baso % (Auto) 0.1 (0.0-1.0) % D-Dimer, Quantitative (0-400) ng/mL Sodium 134 L (136-145) mmol/L Potassium 4.2 (3.5-5.1) mmol/L Chloride 100 (98-107) mmol/L Carbon Dioxide 24 (21-32) mmol/L Anion Gap 14.2 H (7-13) mEq/L BUN 18 (7-18) mg/dL Creatinine 1.64 H (0.70-1.30) mg/dL Est Cr Clr Drug Dosing 49.24 mL/min Estimated GFR (MDRD) 44 BUN/Creatinine Ratio 11.0 (No establ ref range) Glucose 225 H (70-99) mg/dL Lactic Acid 2.6 H* (0.4-2.0) mmol/L Calcium 8.8 (8.5-10.1) mg/dL Total Bilirubin 1.5 H (0.2-1.0) mg/dL AST 14 L (15-37) U/L ALT 26 (16-63) U/L Alkaline Phosphatase 61 (46-116) U/L C-Reactive Protein 5.7 H (0.0-0.9) mg/dL Total Protein 6.6 (6.4-8.2) g/dL Albumin 3.5 (3.4-5.0) g/dL Globulin 3.1 Albumin/Globulin Ratio 1.1 SARS CoV-2 RNA Rapid TAMMY (NEGATIVE) 12/30/20 12/31/20 12/31/20 Range/Units 23:20 00:20 06:30 WBC 19.2 H (5.0-10.0) 10^3/uL RBC 4.96 (4.6-6.2) 10^6/uL Hgb 15.1 (14.0-18.0) g/dL Hct 45.2 (40.0-54.0) % MCV 91.1 (80-100) fL MCH 30.4 (27.0-34.0) pg MCHC 33.4 (33.0-35.0) g/dL Plt Count 289 (150-450) 10^3/uL Neut % (Auto) 90.7 H (42.2-75.2) % Lymph % (Auto) 5.1 L (20.5-50.1) % [place] % (Auto) 4.1 (2-8) % Eos % (Auto) 0.0 L (1.0-3.0) % Baso % (Auto) 0.1 (0.0-1.0) % D-Dimer, Quantitative 267 (0-400) ng/mL Sodium (136-145) mmol/L Potassium (3.5-5.1) mmol/L Chloride (98-107) mmol/L Carbon Dioxide (21-32) mmol/L Anion Gap (7-13) mEq/L BUN (7-18) mg/dL Creatinine (0.70-1.30) mg/dL Est Cr Clr Drug Dosing mL/min Estimated GFR (MDRD) BUN/Creatinine Ratio (No establ ref range) Glucose (70-99) mg/dL Lactic Acid (0.4-2.0) mmol/L Calcium (8.5-10.1) mg/dL Total Bilirubin (0.2-1.0) mg/dL AST (15-37) U/L ALT (16-63) U/L Alkaline Phosphatase (46-116) U/L C-Reactive Protein (0.0-0.9) mg/dL Total Protein (6.4-8.2) g/dL Albumin (3.4-5.0) g/dL Globulin Albumin/Globulin Ratio SARS CoV-2 RNA Rapid TAMMY Negative (NEGATIVE) 12/31/20 12/31/20 Range/Units 06:30 08:15 WBC (5.0-10.0) 10^3/uL RBC (4.6-6.2) 10^6/uL Hgb (14.0-18.0) g/dL Hct (40.0-54.0) % MCV (80-100) fL MCH (27.0-34.0) pg MCHC (33.0-35.0) g/dL Plt Count (150-450) 10^3/uL Neut % (Auto) (42.2-75.2) % Lymph % (Auto) (20.5-50.1) % [place] % (Auto) (2-8) % Eos % (Auto) (1.0-3.0) % Baso % (Auto) (0.0-1.0) % D-Dimer, Quantitative (0-400) ng/mL Sodium 134 L (136-145) mmol/L Potassium 4.1 (3.5-5.1) mmol/L Chloride 101 (98-107) mmol/L Carbon Dioxide 26 (21-32) mmol/L Anion Gap 11.1 (7-13) mEq/L BUN 16 (7-18) mg/dL Creatinine 1.39 H (0.70-1.30) mg/dL Est Cr Clr Drug Dosing 58.09 mL/min Estimated GFR (MDRD) 53 BUN/Creatinine Ratio (No establ ref range) Glucose 132 H (70-99) mg/dL Lactic Acid 1.2 (0.4-2.0) mmol/L Calcium 8.6 (8.5-10.1) mg/dL Total Bilirubin (0.2-1.0) mg/dL AST (15-37) U/L ALT (16-63) U/L Alkaline Phosphatase (46-116) U/L C-Reactive Protein (0.0-0.9) mg/dL Total Protein (6.4-8.2) g/dL Albumin (3.4-5.0) g/dL Globulin Albumin/Globulin Ratio SARS CoV-2 RNA Rapid TAMMY (NEGATIVE) Med Orders - Current: Current Medications Acetaminophen (Acetaminophen 325 Mg Tab) 650 mg PO Q4H PRN PRN Reason: Pain (Mild 1-3)/fever Last Admin: 12/31/20 06:14 Dose: 650 mg Documented by: Hydrocodone Bitart/Acetaminophen (Acetaminophen/Hydrocodone 325-10 Mg Tab) 1 tab PO Q4H PRN PRN Reason: Pain (moderate 4-6) Docusate Sodium (Docusate Sodium 100 Mg Cap) 100 mg PO BID PRN PRN Reason: Constipation Heparin Sodium (Porcine) (Heparin Sodium 5,000 Units/Ml Vial) 5,000 units SUBCUT Q8HR [facility] Last Admin: 12/31/20 13:43 Dose: 5,000 units Documented by: Levofloxacin/Dextrose 750 mg/ (Premix) 150 mls @ 100 mls/hr IV Q48H [facility] Last Admin: 12/31/20 01:57 Dose: 100 mls/hr Documented by: Sodium Chloride (Normal Saline) 1,000 mls @ 100 mls/hr IV ASDIRECTED [facility] Last Admin: 12/31/20 01:55 Dose: 100 mls/hr Documented by: Vancomycin HCl 1.25 gm/ Sodium (Chloride) 250 mls @ 166.667 mls/hr IV Q12H [facility] Last Admin: 12/31/20 12:12 Dose: 166.667 mls/hr Documented by: Ondansetron HCl (Ondansetron 4 Mg Tab.Dis) 4 mg PO Q6H PRN PRN Reason: nausea, able to take PO Sodium Chloride (Sodium Chloride 0.9% 10 Ml Syringe) 10 ml FLUSH ASDIRECTED PRN PRN Reason: Keep Vein Open Last Admin: 12/30/20 23:21 Dose: 10 ml Documented by: Vancomycin HCl (Pharmacy To Dose - Vancomycin) 1 dose .XX ASDIRECTED [facility] Zolpidem Tartrate (Zolpidem 5 Mg Tab) 5 mg PO BEDTIME PRN PRN Reason: Sleep Discontinued Medications Vancomycin HCl 1,500 mg/ (Sodium Chloride) 500 mls @ 333.333 mls/hr IV ONETIME ONE Stop: 12/31/20 01:24 Last Admin: 12/31/20 00:13 Dose: 333.333 mls/hr Documented by: Sodium Chloride (Normal Saline) 1,000 mls @ 999 mls/hr IV .BOLUS ONE Stop: 12/31/20 00:57 Last Admin: 12/31/20 02:03 Dose: Not Given Documented by: Vancomycin HCl 1.25 gm/ Sodium (Chloride) 250 mls @ 166.667 mls/hr IV Q12H [facility] Sterile Water (Sterile Water For Injection) Confirm Administered Dose 40 mls @ as directed .ROUTE .STK-MED ONE Stop: 12/31/20 12:03 Last Admin: 12/31/20 12:17 Dose: Not Given Documented by: - Exam General: Alert, Oriented Lungs: Clear to Auscultation, Normal Respiratory Effort Cardiovascular: Regular Rate, Regular Rhythm GI/Abdominal Exam: Normal Bowel Sounds, Soft, Non-Tender Extremities: Pedal Edema (left leg swelling, redness, tenderness) - Patient Data Lab Results Last 24 hrs: Laboratory Results - last 24 hr 12/30/20 12/30/20 12/30/20 Range/Units 23:20 23:20 23:20 WBC 24.0 H (5.0-10.0) 10^3/uL RBC 5.33 (4.6-6.2) 10^6/uL Hgb 16.3 (14.0-18.0) g/dL Hct 48.2 (40.0-54.0) % MCV 90.4 (80-100) fL MCH 30.6 (27.0-34.0) pg MCHC 33.8 (33.0-35.0) g/dL Plt Count 311 (150-450) 10^3/uL Neut % (Auto) 93.0 H (42.2-75.2) % Lymph % (Auto) 3.1 L (20.5-50.1) % [place] % (Auto) 3.8 (2-8) % Eos % (Auto) 0.0 L (1.0-3.0) % Baso % (Auto) 0.1 (0.0-1.0) % D-Dimer, Quantitative (0-400) ng/mL Sodium 134 L (136-145) mmol/L Potassium 4.2 (3.5-5.1) mmol/L Chloride 100 (98-107) mmol/L Carbon Dioxide 24 (21-32) mmol/L Anion Gap 14.2 H (7-13) mEq/L BUN 18 (7-18) mg/dL Creatinine 1.64 H (0.70-1.30) mg/dL Est Cr Clr Drug Dosing 49.24 mL/min Estimated GFR (MDRD) 44 BUN/Creatinine Ratio 11.0 (No establ ref range) Glucose 225 H (70-99) mg/dL Lactic Acid 2.6 H* (0.4-2.0) mmol/L Calcium 8.8 (8.5-10.1) mg/dL Total Bilirubin 1.5 H (0.2-1.0) mg/dL AST 14 L (15-37) U/L ALT 26 (16-63) U/L Alkaline Phosphatase 61 (46-116) U/L C-Reactive Protein 5.7 H (0.0-0.9) mg/dL Total Protein 6.6 (6.4-8.2) g/dL Albumin 3.5 (3.4-5.0) g/dL Globulin 3.1 Albumin/Globulin Ratio 1.1 SARS CoV-2 RNA Rapid TAMMY (NEGATIVE) 12/30/20 12/31/20 12/31/20 Range/Units 23:20 00:20 06:30 WBC 19.2 H (5.0-10.0) 10^3/uL RBC 4.96 (4.6-6.2) 10^6/uL Hgb 15.1 (14.0-18.0) g/dL Hct 45.2 (40.0-54.0) % MCV 91.1 (80-100) fL MCH 30.4 (27.0-34.0) pg MCHC 33.4 (33.0-35.0) g/dL Plt Count 289 (150-450) 10^3/uL Neut % (Auto) 90.7 H (42.2-75.2) % Lymph % (Auto) 5.1 L (20.5-50.1) % [place] % (Auto) 4.1 (2-8) % Eos % (Auto) 0.0 L (1.0-3.0) % Baso % (Auto) 0.1 (0.0-1.0) % D-Dimer, Quantitative 267 (0-400) ng/mL Sodium (136-145) mmol/L Potassium (3.5-5.1) mmol/L Chloride (98-107) mmol/L Carbon Dioxide (21-32) mmol/L Anion Gap (7-13) mEq/L BUN (7-18) mg/dL Creatinine (0.70-1.30) mg/dL Est Cr Clr Drug Dosing mL/min Estimated GFR (MDRD) BUN/Creatinine Ratio (No establ ref range) Glucose (70-99) mg/dL Lactic Acid (0.4-2.0) mmol/L Calcium (8.5-10.1) mg/dL Total Bilirubin (0.2-1.0) mg/dL AST (15-37) U/L ALT (16-63) U/L Alkaline Phosphatase (46-116) U/L C-Reactive Protein (0.0-0.9) mg/dL Total Protein (6.4-8.2) g/dL Albumin (3.4-5.0) g/dL Globulin Albumin/Globulin Ratio SARS CoV-2 RNA Rapid TAMMY Negative (NEGATIVE) 12/31/20 12/31/20 Range/Units 06:30 08:15 WBC (5.0-10.0) 10^3/uL RBC (4.6-6.2) 10^6/uL Hgb (14.0-18.0) g/dL Hct (40.0-54.0) % MCV (80-100) fL MCH (27.0-34.0) pg MCHC (33.0-35.0) g/dL Plt Count (150-450) 10^3/uL Neut % (Auto) (42.2-75.2) % Lymph % (Auto) (20.5-50.1) % [place] % (Auto) (2-8) % Eos % (Auto) (1.0-3.0) % Baso % (Auto) (0.0-1.0) % D-Dimer, Quantitative (0-400) ng/mL Sodium 134 L (136-145) mmol/L Potassium 4.1 (3.5-5.1) mmol/L Chloride 101 (98-107) mmol/L Carbon Dioxide 26 (21-32) mmol/L Anion Gap 11.1 (7-13) mEq/L BUN 16 (7-18) mg/dL Creatinine 1.39 H (0.70-1.30) mg/dL Est Cr Clr Drug Dosing 58.09 mL/min Estimated GFR (MDRD) 53 BUN/Creatinine Ratio (No establ ref range) Glucose 132 H (70-99) mg/dL Lactic Acid 1.2 (0.4-2.0) mmol/L Calcium 8.6 (8.5-10.1) mg/dL Total Bilirubin (0.2-1.0) mg/dL AST (15-37) U/L ALT (16-63) U/L Alkaline Phosphatase (46-116) U/L C-Reactive Protein (0.0-0.9) mg/dL Total Protein (6.4-8.2) g/dL Albumin (3.4-5.0) g/dL Globulin Albumin/Globulin Ratio SARS CoV-2 RNA Rapid TAMMY (NEGATIVE) Result Diagrams: 12/31/20 06:30 12/31/20 06:30 Sepsis Event Note - Evaluation Sepsis Screening Result: Possible Sepsis Risk - Focused Exam Vital Signs: Vital Signs Temp Temp Pulse Resp BP Pulse Ox 12/31/20 12:00 96.8 F L 63 20 114/65 96 12/31/20 08:33 96.4 F L 64 20 113/64 96 12/31/20 06:14 100.8 F H 12/31/20 06:00 100.8 F H 86 18 124/53 L 96 - Problem List & Annotations (1) Acute kidney injury SNOMED Code(s): 97550280, 39983569 Code(s): N17.9 - ACUTE KIDNEY FAILURE, UNSPECIFIED Status: Acute Priority: High Current Visit: No (2) Cellulitis SNOMED Code(s): 050754601 Code(s): L03.90 - CELLULITIS, UNSPECIFIED Status: Acute Current Visit: No Qualifiers: Site of cellulitis: extremity Site of cellulitis of extremity: lower extremity Laterality: left Qualified Code(s): L03.116 - Cellulitis of left lower limb - Problem List Review Problem List Initiated/Reviewed/Updated: Yes - My Orders Last 24 Hours: My Active Orders 12/31/20 01:18 VTE/DVT Education [RC] PER UNIT ROUTINE Vital Signs [RC] Q4H Resuscitation Status Routine 12/31/20 01:19 Oxygen Therapy [RC] PRN Up With Assistance [RC] ASDIRECTED VTE/DVT Education [RC] PER UNIT ROUTINE Acetaminophen [TylenoL] 650 mg PO Q4H PRN Acetaminophen/HYDROcodone [[place] 325-10 MG] 1 tab PO Q4H PRN Docusate Sodium [Colace] 100 mg PO BID PRN Ondansetron [Zofran ODT] 4 mg PO Q6H PRN Zolpidem [Ambien] 5 mg PO BEDTIME PRN 12/31/20 01:30 Levofloxacin/Dextrose 5%-Water [Levaquin in D5W 750 MG/150 ML] 750 mg Premix Bag 1 bag IV Q48H Pharmacy to Dose - Vancomycin 1 dose .XX ASDIRECTED Sodium Chloride 0.9% [Normal Saline] 1,000 ml IV ASDIRECTED 12/31/20 06:00 Heparin Sodium 5,000 units SUBCUT Q8HR 12/31/20 Breakfast Regular Diet [DIET] 12/31/20 12:00 Vancomycin 1.25 gm Sodium Chloride 0.9% [Normal Saline AdvBag] 250 ml IV Q12H 01/01/21 05:11 BASIC METABOLIC PANEL,BMP [CHEM] AM CBC WITH AUTO DIFF [HEME] AM 01/02/21 05:11 BASIC METABOLIC PANEL,BMP [CHEM] AM CBC WITH AUTO DIFF [HEME] AM 01/02/21 11:30 VANCOMYCIN TROUGH [CHEM] Routine 01/03/21 05:11 BASIC METABOLIC PANEL,BMP [CHEM] AM CBC WITH AUTO DIFF [HEME] AM 01/04/21 05:11 BASIC METABOLIC PANEL,BMP [CHEM] AM CBC WITH AUTO DIFF [HEME] AM - Plan Plan:: presented with 24 h progressive left leg redness, edema left leg cellulitis blood cx: pending treat with vanc and zosyn empirically sepsis with elevated lactic acid, celluitis will treat infection recheck lactic - normalized hydrate well CHANEL improving will hydrate well dvt prophylaxis with sq heparin
[2021-01-01] MEDS: Heparin Sodium 5,000 Units/ML Vial SUBCUT SCH ×3 (05:26→21:14)
[2021-01-01] MEDS: Acetaminophen 325 MG Tab PO PRN (05:30)
[2021-01-01 06:36] LABS: ANION GAP 7.3 mEq/L (7-13)
--- NOTE | 2021-01-01 10:49 | PCM.PN ---
- General Info Date of Service: 01/01/21 Admission Dx/Problem (Free Text): Admission Diagnosis/Problem Admission Diagnosis/Problem Cellulitis Subjective Update: feeling better only low grade temp, associated with improvement in left leg redness edema is still severe pain is better no sob, no cp, no diarrhea - Patient Data Vitals - Most Recent: Last Vital Signs Temp 98.1 F 01/01/21 08:33 Pulse 76 01/01/21 08:33 Resp 20 01/01/21 08:33 BP 144/78 H 01/01/21 08:33 Pulse Ox 99 01/01/21 08:33 Weight - Most Recent: 225 lb I&O - Last 24 Hours: Intake & Output 12/31/20 01/01/21 01/01/21 22:59 06:59 14:59 Intake Total 1100 1835 500 Output Total 1700 Balance 1100 135 500 Lab Results Last 24 Hours: Laboratory Results - last 24 hr 01/01/21 01/01/21 Range/Units 06:15 06:15 WBC 12.0 H (5.0-10.0) 10^3/uL RBC 5.02 (4.6-6.2) 10^6/uL Hgb 15.1 (14.0-18.0) g/dL Hct 46.6 (40.0-54.0) % MCV 92.8 (80-100) fL MCH 30.1 (27.0-34.0) pg MCHC 32.4 L (33.0-35.0) g/dL Plt Count 262 (150-450) 10^3/uL Neut % (Auto) 77.6 H (42.2-75.2) % Lymph % (Auto) 12.0 L (20.5-50.1) % Craig % (Auto) 8.2 H (2-8) % Eos % (Auto) 2.0 (1.0-3.0) % Baso % (Auto) 0.2 (0.0-1.0) % Sodium 137 (136-145) mmol/L Potassium 4.3 (3.5-5.1) mmol/L Chloride 105 (98-107) mmol/L Carbon Dioxide 29 (21-32) mmol/L Anion Gap 7.3 (7-13) mEq/L BUN 11 (7-18) mg/dL Creatinine 1.38 H (0.70-1.30) mg/dL Est Cr Clr Drug Dosing 58.51 mL/min Estimated GFR (MDRD) 53 Glucose 108 H (70-99) mg/dL Calcium 8.7 (8.5-10.1) mg/dL Moises Results Last 24 Hours: Microbiology 12/30/20 23:30 Aerobic Blood Culture - Preliminary Blood - Arm, Right NO GROWTH AFTER 1 DAY Anaerobic Blood Culture - Preliminary NO GROWTH AFTER 1 DAY 12/30/20 23:20 Aerobic Blood Culture - Preliminary Blood - Arm, Left NO GROWTH AFTER 1 DAY Anaerobic Blood Culture - Preliminary NO GROWTH AFTER 1 DAY Med Orders - Current: Current Medications Acetaminophen (Acetaminophen 325 Mg Tab) 650 mg PO Q4H PRN PRN Reason: Pain (Mild 1-3)/fever Last Admin: 01/01/21 05:30 Dose: 650 mg Documented by: Hydrocodone Bitart/Acetaminophen (Acetaminophen/Hydrocodone 325-10 Mg Tab) 1 tab PO Q4H PRN PRN Reason: Pain (moderate 4-6) Docusate Sodium (Docusate Sodium 100 Mg Cap) 100 mg PO BID PRN PRN Reason: Constipation Heparin Sodium (Porcine) (Heparin Sodium 5,000 Units/Ml Vial) 5,000 units SUBCUT Q8HR [facility] Last Admin: 01/01/21 05:26 Dose: 5,000 units Documented by: Sodium Chloride (Normal Saline) 1,000 mls @ 100 mls/hr IV ASDIRECTED [facility] Last Infusion: 01/01/21 09:51 Dose: Infused Documented by: Vancomycin HCl 1.25 gm/ Sodium (Chloride) 250 mls @ 166.667 mls/hr IV Q12H [facility] Last Infusion: 01/01/21 01:15 Dose: Infused Documented by: Levofloxacin/Dextrose 750 mg/ (Premix) 150 mls @ 100 mls/hr IV Q24H [facility] Ondansetron HCl (Ondansetron 4 Mg Tab.Dis) 4 mg PO Q6H PRN PRN Reason: nausea, able to take PO Sodium Chloride (Sodium Chloride 0.9% 10 Ml Syringe) 10 ml FLUSH ASDIRECTED PRN PRN Reason: Keep Vein Open Last Admin: 12/30/20 23:21 Dose: 10 ml Documented by: Vancomycin HCl (Pharmacy To Dose - Vancomycin) 1 dose .XX ASDIRECTED [facility] Zolpidem Tartrate (Zolpidem 5 Mg Tab) 5 mg PO BEDTIME PRN PRN Reason: Sleep Discontinued Medications Vancomycin HCl 1,500 mg/ (Sodium Chloride) 500 mls @ 333.333 mls/hr IV ONETIME ONE Stop: 12/31/20 01:24 Last Admin: 12/31/20 00:13 Dose: 333.333 mls/hr Documented by: Sodium Chloride (Normal Saline) 1,000 mls @ 999 mls/hr IV .BOLUS ONE Stop: 12/31/20 00:57 Last Admin: 12/31/20 02:03 Dose: Not Given Documented by: Levofloxacin/Dextrose 750 mg/ (Premix) 150 mls @ 100 mls/hr IV Q48H [facility] Last Admin: 12/31/20 01:57 Dose: 100 mls/hr Documented by: Vancomycin HCl 1.25 gm/ Sodium (Chloride) 250 mls @ 166.667 mls/hr IV Q12H [facility] Sterile Water (Sterile Water For Injection) Confirm Administered Dose 40 mls @ as directed .ROUTE .STK-MED ONE Stop: 12/31/20 12:03 Last Admin: 12/31/20 12:17 Dose: Not Given Documented by: - Exam Quality Assessment: No: Supplemental Oxygen General: Alert, Oriented Lungs: Clear to Auscultation, Normal Respiratory Effort Cardiovascular: Regular Rate, Regular Rhythm GI/Abdominal Exam: Soft, Non-Tender Extremities: Other (left leg reduced redness, still 3+ edema) - Patient Data Lab Results Last 24 hrs: Laboratory Results - last 24 hr 01/01/21 01/01/21 Range/Units 06:15 06:15 WBC 12.0 H (5.0-10.0) 10^3/uL RBC 5.02 (4.6-6.2) 10^6/uL Hgb 15.1 (14.0-18.0) g/dL Hct 46.6 (40.0-54.0) % MCV 92.8 (80-100) fL MCH 30.1 (27.0-34.0) pg MCHC 32.4 L (33.0-35.0) g/dL Plt Count 262 (150-450) 10^3/uL Neut % (Auto) 77.6 H (42.2-75.2) % Lymph % (Auto) 12.0 L (20.5-50.1) % Craig % (Auto) 8.2 H (2-8) % Eos % (Auto) 2.0 (1.0-3.0) % Baso % (Auto) 0.2 (0.0-1.0) % Sodium 137 (136-145) mmol/L Potassium 4.3 (3.5-5.1) mmol/L Chloride 105 (98-107) mmol/L Carbon Dioxide 29 (21-32) mmol/L Anion Gap 7.3 (7-13) mEq/L BUN 11 (7-18) mg/dL Creatinine 1.38 H (0.70-1.30) mg/dL Est Cr Clr Drug Dosing 58.51 mL/min Estimated GFR (MDRD) 53 Glucose 108 H (70-99) mg/dL Calcium 8.7 (8.5-10.1) mg/dL Result Diagrams: 01/01/21 06:15 01/01/21 06:15 Moises Results Last 24 hrs: Microbiology 12/30/20 23:30 Aerobic Blood Culture - Preliminary Blood - Arm, Right NO GROWTH AFTER 1 DAY Anaerobic Blood Culture - Preliminary NO GROWTH AFTER 1 DAY 12/30/20 23:20 Aerobic Blood Culture - Preliminary Blood - Arm, Left NO GROWTH AFTER 1 DAY Anaerobic Blood Culture - Preliminary NO GROWTH AFTER 1 DAY Sepsis Event Note - Evaluation Sepsis Screening Result: No Definite Risk - Focused Exam Vital Signs: Vital Signs Temp Temp Pulse Resp BP Pulse Ox Pulse Ox 01/01/21 08:33 98.1 F 76 20 144/78 H 99 01/01/21 07:00 97 F 01/01/21 06:00 100.4 F 100.4 F 01/01/21 05:30 99.5 F 01/01/21 05:15 99.5 F 77 20 133/81 97 12/31/20 23:00 98.2 F 80 20 137/77 98 98 - Problem List & Annotations (1) Acute kidney injury SNOMED Code(s): 42923528, 52156195 Code(s): N17.9 - ACUTE KIDNEY FAILURE, UNSPECIFIED Status: Acute Priority: High Current Visit: No (2) Cellulitis SNOMED Code(s): 641791499 Code(s): L03.90 - CELLULITIS, UNSPECIFIED Status: Acute Current Visit: No Qualifiers: Site of cellulitis: extremity Site of cellulitis of extremity: lower extremity Laterality: left Qualified Code(s): L03.116 - Cellulitis of left lower limb - Problem List Review Problem List Initiated/Reviewed/Updated: Yes - My Orders Last 24 Hours: My Active Orders 12/31/20 12:00 Vancomycin 1.25 gm Sodium Chloride 0.9% [Normal Saline AdvBag] 250 ml IV Q12H 01/01/21 12:00 Levofloxacin/Dextrose 5%-Water [Levaquin in D5W 750 MG/150 ML] 750 mg Premix Bag 1 bag IV Q24H 01/02/21 05:11 BASIC METABOLIC PANEL,BMP [CHEM] AM CBC WITH AUTO DIFF [HEME] AM 01/02/21 11:30 VANCOMYCIN TROUGH [CHEM] Routine 01/03/21 05:11 BASIC METABOLIC PANEL,BMP [CHEM] AM CBC WITH AUTO DIFF [HEME] AM 01/04/21 05:11 BASIC METABOLIC PANEL,BMP [CHEM] AM CBC WITH AUTO DIFF [HEME] AM - Plan Plan:: presented with 24 h progressive left leg redness, edema left leg cellulitis blood cx: neg for now treat with vanc and zosyn empirically use compression for edema sepsis with elevated lactic acid, celluitis will treat infection recheck lactic - normalized stop IVF CHANEL improving stop IVF dvt prophylaxis with sq heparin
[2021-01-01] MEDS ORDERED: Levofloxacin/Dextrose 5%-Water 750 MG in Premix Bag 1 BAG IV SCH (12:00)
[2021-01-01] MEDS: Sodium Chloride 0.9% 10 ML Syringe FLUSH PRN (12:12)
[2021-01-01] MEDS: Levofloxacin/Dextrose 5%-Water 750 MG in Premix Bag 1 BAG IV SCH (12:12)
[2021-01-02] MEDS: Sodium Chloride 0.9% 10 ML Syringe FLUSH PRN (02:17)
[2021-01-02] MEDS: Heparin Sodium 5,000 Units/ML Vial SUBCUT SCH ×3 (05:13→21:29)
[2021-01-02 06:57] LABS: ANION GAP 12.1 mEq/L (7-13)
--- NOTE | 2021-01-02 10:18 | PCM.PN ---
- General Info Date of Service: 01/02/21 Admission Dx/Problem (Free Text): Admission Diagnosis/Problem Admission Diagnosis/Problem Cellulitis Subjective Update: feeling better only low grade temp, associated with improvement in left leg redness edema is still severe pain is better no sob, no cp, no diarrhea Functional Status: Reports: Pain Controlled, Tolerating Diet - Review of Systems General: Reports: Fever (low grade) Pulmonary: Denies: Shortness of Breath Cardiovascular: Reports: Edema (left leg). Denies: Chest Pain Neurological: Denies: Confusion - Patient Data Vitals - Most Recent: Last Vital Signs Temp 99.0 F 01/02/21 08:11 Pulse 83 01/02/21 08:11 Resp 20 01/02/21 08:11 BP 132/88 01/02/21 08:11 Pulse Ox 96 01/02/21 08:11 Weight - Most Recent: 225 lb I&O - Last 24 Hours: Intake & Output 01/01/21 01/02/21 01/02/21 22:59 06:59 14:59 Intake Total 404 100 Output Total 1000 Balance -596 100 Lab Results Last 24 Hours: Laboratory Results - last 24 hr 01/02/21 01/02/21 Range/Units 05:55 05:55 WBC 9.4 (5.0-10.0) 10^3/uL RBC 5.24 (4.6-6.2) 10^6/uL Hgb 15.7 (14.0-18.0) g/dL Hct 48.0 (40.0-54.0) % MCV 91.6 (80-100) fL MCH 30.0 (27.0-34.0) pg MCHC 32.7 L (33.0-35.0) g/dL Plt Count 290 (150-450) 10^3/uL Neut % (Auto) 66.2 (42.2-75.2) % Lymph % (Auto) 19.9 L (20.5-50.1) % Cloud % (Auto) 9.9 H (2-8) % Eos % (Auto) 3.7 H (1.0-3.0) % Baso % (Auto) 0.3 (0.0-1.0) % Sodium 141 (136-145) mmol/L Potassium 4.1 (3.5-5.1) mmol/L Chloride 102 (98-107) mmol/L Carbon Dioxide 31 (21-32) mmol/L Anion Gap 12.1 (7-13) mEq/L BUN 11 (7-18) mg/dL Creatinine 1.38 H (0.70-1.30) mg/dL Est Cr Clr Drug Dosing 58.51 mL/min Estimated GFR (MDRD) 53 Glucose 111 H (70-99) mg/dL Calcium 9.2 (8.5-10.1) mg/dL Moises Results Last 24 Hours: Microbiology 12/30/20 23:30 Aerobic Blood Culture - Preliminary Blood - Arm, Right NO GROWTH AFTER 2 DAYS Anaerobic Blood Culture - Preliminary NO GROWTH AFTER 2 DAYS 12/30/20 23:20 Aerobic Blood Culture - Preliminary Blood - Arm, Left NO GROWTH AFTER 2 DAYS Anaerobic Blood Culture - Preliminary NO GROWTH AFTER 2 DAYS Med Orders - Current: Current Medications Acetaminophen (Acetaminophen 325 Mg Tab) 650 mg PO Q4H PRN PRN Reason: Pain (Mild 1-3)/fever Last Admin: 01/01/21 05:30 Dose: 650 mg Documented by: Hydrocodone Bitart/Acetaminophen (Acetaminophen/Hydrocodone 325-10 Mg Tab) 1 tab PO Q4H PRN PRN Reason: Pain (moderate 4-6) Docusate Sodium (Docusate Sodium 100 Mg Cap) 100 mg PO BID PRN PRN Reason: Constipation Heparin Sodium (Porcine) (Heparin Sodium 5,000 Units/Ml Vial) 5,000 units SUBCUT Q8HR [facility] Last Admin: 01/02/21 05:13 Dose: 5,000 units Documented by: Levofloxacin/Dextrose 750 mg/ (Premix) 150 mls @ 100 mls/hr IV Q24H [facility] Last Admin: 01/01/21 12:12 Dose: 100 mls/hr Documented by: Vancomycin HCl 1.25 gm/ Sodium (Chloride) 250 mls @ 166.667 mls/hr IV Q12H [facility] Last Infusion: 01/02/21 04:06 Dose: Infused Documented by: Ondansetron HCl (Ondansetron 4 Mg Tab.Dis) 4 mg PO Q6H PRN PRN Reason: nausea, able to take PO Sodium Chloride (Sodium Chloride 0.9% 10 Ml Syringe) 10 ml FLUSH ASDIRECTED PRN PRN Reason: Keep Vein Open Last Admin: 01/02/21 02:17 Dose: 10 ml Documented by: Vancomycin HCl (Pharmacy To Dose - Vancomycin) 1 dose .XX ASDIRECTED [facility] Zolpidem Tartrate (Zolpidem 5 Mg Tab) 5 mg PO BEDTIME PRN PRN Reason: Sleep Discontinued Medications Vancomycin HCl 1,500 mg/ (Sodium Chloride) 500 mls @ 333.333 mls/hr IV ONETIME ONE Stop: 12/31/20 01:24 Last Admin: 12/31/20 00:13 Dose: 333.333 mls/hr Documented by: Sodium Chloride (Normal Saline) 1,000 mls @ 999 mls/hr IV .BOLUS ONE Stop: 12/31/20 00:57 Last Admin: 12/31/20 02:03 Dose: Not Given Documented by: Levofloxacin/Dextrose 750 mg/ (Premix) 150 mls @ 100 mls/hr IV Q48H [facility] Last Admin: 12/31/20 01:57 Dose: 100 mls/hr Documented by: Sodium Chloride (Normal Saline) 1,000 mls @ 100 mls/hr IV ASDIRECTED [facility] Last Infusion: 01/01/21 09:51 Dose: Infused Documented by: Vancomycin HCl 1.25 gm/ Sodium (Chloride) 250 mls @ 166.667 mls/hr IV Q12H [facility] Vancomycin HCl 1.25 gm/ Sodium (Chloride) 250 mls @ 166.667 mls/hr IV Q12H [facility] Last Admin: 01/01/21 13:48 Dose: 166 mls/hr Documented by: Sterile Water (Sterile Water For Injection) Confirm Administered Dose 40 mls @ as directed .ROUTE .STK-MED ONE Stop: 12/31/20 12:03 Last Admin: 12/31/20 12:17 Dose: Not Given Documented by: Levofloxacin/Dextrose 750 mg/ (Premix) 150 mls @ 100 mls/hr IV Q24H [facility] - Exam Quality Assessment: No: Supplemental Oxygen General: Alert, Oriented Lungs: Clear to Auscultation, Normal Respiratory Effort Cardiovascular: Regular Rate, Regular Rhythm Extremities: Pedal Edema (left leg 2-3 + pitting ) Skin: Warm, Other (left leg redness is fading ) - Patient Data Lab Results Last 24 hrs: Laboratory Results - last 24 hr 01/02/21 01/02/21 Range/Units 05:55 05:55 WBC 9.4 (5.0-10.0) 10^3/uL RBC 5.24 (4.6-6.2) 10^6/uL Hgb 15.7 (14.0-18.0) g/dL Hct 48.0 (40.0-54.0) % MCV 91.6 (80-100) fL MCH 30.0 (27.0-34.0) pg MCHC 32.7 L (33.0-35.0) g/dL Plt Count 290 (150-450) 10^3/uL Neut % (Auto) 66.2 (42.2-75.2) % Lymph % (Auto) 19.9 L (20.5-50.1) % Cloud % (Auto) 9.9 H (2-8) % Eos % (Auto) 3.7 H (1.0-3.0) % Baso % (Auto) 0.3 (0.0-1.0) % Sodium 141 (136-145) mmol/L Potassium 4.1 (3.5-5.1) mmol/L Chloride 102 (98-107) mmol/L Carbon Dioxide 31 (21-32) mmol/L Anion Gap 12.1 (7-13) mEq/L BUN 11 (7-18) mg/dL Creatinine 1.38 H (0.70-1.30) mg/dL Est Cr Clr Drug Dosing 58.51 mL/min Estimated GFR (MDRD) 53 Glucose 111 H (70-99) mg/dL Calcium 9.2 (8.5-10.1) mg/dL Result Diagrams: 01/02/21 05:55 01/02/21 05:55 Moises Results Last 24 hrs: Microbiology 12/30/20 23:30 Aerobic Blood Culture - Preliminary Blood - Arm, Right NO GROWTH AFTER 2 DAYS Anaerobic Blood Culture - Preliminary NO GROWTH AFTER 2 DAYS 12/30/20 23:20 Aerobic Blood Culture - Preliminary Blood - Arm, Left NO GROWTH AFTER 2 DAYS Anaerobic Blood Culture - Preliminary NO GROWTH AFTER 2 DAYS Sepsis Event Note - Evaluation Sepsis Screening Result: No Definite Risk - Focused Exam Vital Signs: Vital Signs Temp Pulse Resp BP Pulse Ox Pulse Ox 01/02/21 08:11 99.0 F 83 20 132/88 96 01/02/21 05:00 99.3 F 70 20 122/84 96 01/01/21 23:30 99.4 F 71 20 135/85 96 96 - Problem List & Annotations (1) Acute kidney injury SNOMED Code(s): 85632331, 30721112 Code(s): N17.9 - ACUTE KIDNEY FAILURE, UNSPECIFIED Status: Acute Priority: High Current Visit: No (2) Cellulitis SNOMED Code(s): 083752291 Code(s): L03.90 - CELLULITIS, UNSPECIFIED Status: Acute Current Visit: No Qualifiers: Site of cellulitis: extremity Site of cellulitis of extremity: lower extremity Laterality: left Qualified Code(s): L03.116 - Cellulitis of left lower limb - Problem List Review Problem List Initiated/Reviewed/Updated: Yes - My Orders Last 24 Hours: My Active Orders 01/01/21 12:00 Levofloxacin/Dextrose 5%-Water [Levaquin in D5W 750 MG/150 ML] 750 mg Premix Bag 1 bag IV Q24H 01/02/21 02:00 Vancomycin 1.25 gm Sodium Chloride 0.9% [Normal Saline AdvBag] 250 ml IV Q12H 01/02/21 10:13 OT Evaluation and Treatment [CONS] Routine 01/02/21 13:30 VANCOMYCIN TROUGH [CHEM] Routine 01/03/21 05:11 BASIC METABOLIC PANEL,BMP [CHEM] AM CBC WITH AUTO DIFF [HEME] AM 01/04/21 05:11 BASIC METABOLIC PANEL,BMP [CHEM] AM CBC WITH AUTO DIFF [HEME] AM - Plan Plan:: presented with 24 h progressive left leg redness, edema left leg cellulitis blood cx: neg for now no wound, no drainage treat with vanc and zosyn empirically use compression for edema - consult ot for wraps sepsis with elevated lactic acid, cellulitis will treat infection recheck lactic - normalized resolved CHANEL improved dvt prophylaxis with sq heparin
[2021-01-02] MEDS: Levofloxacin/Dextrose 5%-Water 750 MG in Premix Bag 1 BAG IV SCH (12:03)
--- NOTE | 2021-01-02 12:59 | US ---
EXAMINATION: Venous Doppler Lwr Ext Lt SEX: Male AGE: 55 years CLINICAL HISTORY: 55-year-old hospitalized male with edema left lower extremity (calf tenderness). Rule out DVT. Interpretation: Negative exam. No current evidence deep vein thrombosis left lower extremity. 1. No sign of intraluminal echogenic thrombus and normal compressibility deep veins of the left calf, knee, thigh, groin. 2. Satisfactory augmentation of the venous waveforms demonstrated respectively in the posterior tibial veins left calf, popliteal vein behind the left knee, and proximally in the femoral/common femoral veins of the left thigh and groin. 4. No superficial saphenous vein thrombus. 5. No popliteal (Galeana's) cyst. 6. No hematoma left calf.
[2021-01-03] MEDS: Sodium Chloride 0.9% 10 ML Syringe FLUSH PRN (02:14)
[2021-01-03] MEDS: Heparin Sodium 5,000 Units/ML Vial SUBCUT SCH (06:04)
[2021-01-03 07:11] LABS: ANION GAP 13.2 mEq/L (7-13)
[2021-01-03 07:53] VITALS: BP 129/83; PULSE 81
--- NOTE | 2021-01-03 09:50 | PCM.DCSUM1 ---
Discharge Summary - Hospital Course Free Text/Narrative:: presented with 24 h progressive left leg redness, edema left leg cellulitis blood cx: neg for now no wound, no drainage treated with vanc and zosyn empirically symptoms improved will finish tx with Bactrim use compression for edema sepsis with elevated lactic acid, cellulitis will treat infection recheck lactic - normalized resolved CHANEL improved f/up with PMD Diagnosis: Stroke: No - Discharge Data Discharge Date: 01/03/21 Discharge Disposition: Home, Self-Care 01 Condition: Good - Referral to Home Health Primary Care Physician: PCP None - Discharge Diagnosis/Problem(s) (1) Acute kidney injury SNOMED Code(s): 92968620, 51828289 ICD Code: N17.9 - ACUTE KIDNEY FAILURE, UNSPECIFIED Status: Acute Priority: High Current Visit: No (2) Cellulitis SNOMED Code(s): 276684677 ICD Code: L03.90 - CELLULITIS, UNSPECIFIED Status: Acute Current Visit: No Qualifiers: Site of cellulitis: extremity Site of cellulitis of extremity: lower extremity Laterality: left Qualified Code(s): L03.116 - Cellulitis of left lower limb - Patient Summary/Data Consults: Consultations 01/02/21 10:13 OT Evaluation and Treatment [CONS] Routine - Patient Instructions Diet: Heart Healthy Diet Activity: As Tolerated - Discharge Plan *PRESCRIPTION DRUG MONITORING PROGRAM REVIEWED*: Not Applicable *COPY OF PRESCRIPTION DRUG MONITORING REPORT IN PATIENT [place]: Not Applicable Prescriptions/Med Rec: Sulfamethoxazole/Trimethoprim [Bactrim Ds Tablet] 1 each PO BID #20 tablet Home Medications: Home Meds Multivitamin 1 tab PO DAILY 12/31/20 [History] Sulfamethoxazole/Trimethoprim [Bactrim Ds Tablet] 1 each PO BID #20 tablet 01/03/21 [Rx] Oxygen Therapy Mode: Room Air Forms: ED Department Discharge Referrals: Chetan Dumont NP [Physician] - (in 3-5 days) - Discharge Summary/Plan Comment DC Time >30 min.: No Total # of Minutes for Discharge Time: 20 min - General Info Date of Service: 01/03/21 Subjective Update: feeling better left leg redness is better left leg has been wrapped pain is better no sob, no cp, no diarrhea Functional Status: Reports: Pain Controlled - Review of Systems General: Denies: Fever Pulmonary: Denies: Shortness of Breath Cardiovascular: Reports: Edema (improved). Denies: Chest Pain Neurological: Denies: Confusion - Patient Data Vitals - Most Recent: Last Vital Signs Temp 98.1 F 01/03/21 07:52 Pulse 81 01/03/21 07:52 Resp 20 01/03/21 07:52 BP 129/83 01/03/21 07:52 Pulse Ox 95 01/03/21 07:52 Weight - Most Recent: 225 lb I&O - Last 24 hours: Intake & Output 01/02/21 01/03/21 01/03/21 22:59 06:59 14:59 Intake Total 600 450 Balance 600 450 Lab Results - Last 24 hrs: Laboratory Results - last 24 hr 01/02/21 01/03/21 01/03/21 Range/Units 13:25 06:25 06:25 WBC 9.4 (5.0-10.0) 10^3/uL RBC 5.55 (4.6-6.2) 10^6/uL Hgb 16.7 (14.0-18.0) g/dL Hct 50.7 (40.0-54.0) % MCV 91.4 (80-100) fL MCH 30.1 (27.0-34.0) pg MCHC 32.9 L (33.0-35.0) g/dL Plt Count 311 (150-450) 10^3/uL Neut % (Auto) 61.7 (42.2-75.2) % Lymph % (Auto) 25.0 (20.5-50.1) % [place] % (Auto) 9.1 H (2-8) % Eos % (Auto) 3.8 H (1.0-3.0) % Baso % (Auto) 0.4 (0.0-1.0) % Add Manual Diff Yes Neutrophils % (Manual) 62 (42-75) % Band Neutrophils % 9 % Lymphocytes % (Manual) 23 (20-50) % Monocytes % (Manual) 3 (2-8) % Eosinophils % (Manual) 3 (1-3) % Sodium 139 (136-145) mmol/L Potassium 4.2 (3.5-5.1) mmol/L Chloride 102 (98-107) mmol/L Carbon Dioxide 28 (21-32) mmol/L Anion Gap 13.2 H (7-13) mEq/L BUN 15 (7-18) mg/dL Creatinine 1.31 H (0.70-1.30) mg/dL Est Cr Clr Drug Dosing 61.64 mL/min Estimated GFR (MDRD) 57 Glucose 109 H (70-99) mg/dL Calcium 9.4 (8.5-10.1) mg/dL Vancomycin Trough 10.4 (10.0-20.0) ug/mL ÁNGEL Results - Last 24 hrs: Microbiology 12/30/20 23:30 Aerobic Blood Culture - Preliminary Blood - Arm, Right NO GROWTH AFTER 3 DAYS Anaerobic Blood Culture - Preliminary NO GROWTH AFTER 3 DAYS 12/30/20 23:20 Aerobic Blood Culture - Preliminary Blood - Arm, Left NO GROWTH AFTER 3 DAYS Anaerobic Blood Culture - Preliminary NO GROWTH AFTER 3 DAYS Med Orders - Current: Current Medications Acetaminophen (Acetaminophen 325 Mg Tab) 650 mg PO Q4H PRN PRN Reason: Pain (Mild 1-3)/fever Last Admin: 01/01/21 05:30 Dose: 650 mg Documented by: Hydrocodone Bitart/Acetaminophen (Acetaminophen/Hydrocodone 325-10 Mg Tab) 1 tab PO Q4H PRN PRN Reason: Pain (moderate 4-6) Docusate Sodium (Docusate Sodium 100 Mg Cap) 100 mg PO BID PRN PRN Reason: Constipation Heparin Sodium (Porcine) (Heparin Sodium 5,000 Units/Ml Vial) 5,000 units SUBCUT Q8HR [facility] Last Admin: 01/03/21 06:04 Dose: 5,000 units Documented by: Levofloxacin/Dextrose 750 mg/ (Premix) 150 mls @ 100 mls/hr IV Q24H [facility] Last Infusion: 01/02/21 13:42 Dose: Infused Documented by: Vancomycin HCl 1.25 gm/ Sodium (Chloride) 250 mls @ 166.667 mls/hr IV Q12H [facility] Last Infusion: 01/03/21 04:22 Dose: Infused Documented by: Ondansetron HCl (Ondansetron 4 Mg Tab.Dis) 4 mg PO Q6H PRN PRN Reason: nausea, able to take PO Sodium Chloride (Sodium Chloride 0.9% 10 Ml Syringe) 10 ml FLUSH ASDIRECTED PRN PRN Reason: Keep Vein Open Last Admin: 01/03/21 02:14 Dose: 10 ml Documented by: Vancomycin HCl (Pharmacy To Dose - Vancomycin) 1 dose .XX ASDIRECTED [facility] Zolpidem Tartrate (Zolpidem 5 Mg Tab) 5 mg PO BEDTIME PRN PRN Reason: Sleep Discontinued Medications Vancomycin HCl 1,500 mg/ (Sodium Chloride) 500 mls @ 333.333 mls/hr IV ONETIME ONE Stop: 12/31/20 01:24 Last Admin: 12/31/20 00:13 Dose: 333.333 mls/hr Documented by: Sodium Chloride (Normal Saline) 1,000 mls @ 999 mls/hr IV .BOLUS ONE Stop: 12/31/20 00:57 Last Admin: 12/31/20 02:03 Dose: Not Given Documented by: Levofloxacin/Dextrose 750 mg/ (Premix) 150 mls @ 100 mls/hr IV Q48H [facility] Last Admin: 12/31/20 01:57 Dose: 100 mls/hr Documented by: Sodium Chloride (Normal Saline) 1,000 mls @ 100 mls/hr IV ASDIRECTED [facility] Last Infusion: 01/01/21 09:51 Dose: Infused Documented by: Vancomycin HCl 1.25 gm/ Sodium (Chloride) 250 mls @ 166.667 mls/hr IV Q12H [facility] Vancomycin HCl 1.25 gm/ Sodium (Chloride) 250 mls @ 166.667 mls/hr IV Q12H [facility] Last Admin: 01/01/21 13:48 Dose: 166 mls/hr Documented by: Sterile Water (Sterile Water For Injection) Confirm Administered Dose 40 mls @ as directed .ROUTE .STK-MED ONE Stop: 12/31/20 12:03 Last Admin: 12/31/20 12:17 Dose: Not Given Documented by: Levofloxacin/Dextrose 750 mg/ (Premix) 150 mls @ 100 mls/hr IV Q24H [facility] - Exam Quality Assessment: Denies: Supplemental Oxygen General: Reports: Alert, Oriented Cardiovascular: Reports: Regular Rate, Regular Rhythm GI/Abdominal Exam: Normal Bowel Sounds, Soft, Non-Tender Extremities: No Pedal Edema Skin: Reports: Warm, Dry Neurological: Reports: No New Focal Deficit Psy/Mental Status: Reports: Alert, Normal Affect
== END 2021-01-03 11:45 | disposition home or self-care (01) | DRG 720 ==
LOC: DL.ED 22:46 → DL.MS 12-31 00:16
PROVIDERS: ADMIT Internal Medicine; ATTEND Internal Medicine
DX: A41.9 Sepsis, unspecified organism (principal); L03.116 Cellulitis of left lower limb; N17.9 Acute kidney failure, unspecified; Z96.652 Presence of left artificial knee joint; Z88.0 Allergy status to penicillin; Z20.822 Contact with and (suspected) exposure to COVID-19; E66.9 Obesity, unspecified; Z68.34 Body mass index [BMI] 34.0-34.9, adult
CPT/HCPCS: 36415; 80048; 80053; 80202; 83605; 85025; 85379; 86140; 87040; 93971; 96374; 97165-GO; 99284-25; A9270-GY; J1644; J1956; J3370; J7030; J7040; J7050; U0002

== ENCOUNTER 2023-02-17 08:42 | Inpatient (IN) | payer BC ==
[2023-02-17] MEDS ORDERED: Sodium Chloride 0.9% 1,000 ML IV ONE ×3 (09:31→10:51)
[2023-02-17] MEDS ORDERED: Sodium Chloride 0.9% 10 ML Syringe FLUSH PRN (09:31)
[2023-02-17 09:57] LABS: BASOPHILS PERCENT AUTO 0.2 % (0.0-1.0); EOSINOPHILS PERCENT AUTO 0.3 % (1.0-3.0); HEMATOCRIT 52.3 % (40.0-54.0); HEMOGLOBIN 17.6 g/dL (14.0-18.0); LYMPHOCYTES PERCENT AUTO 4.4 % (20.5-50.1); MEAN CORPUSCULAR HEMOGLOBIN 32.5 pg (27.0-34.0); MEAN CORPUSCULAR HGB CONC 33.7 g/dL (33.0-35.0); MEAN CORPUSCULAR VOLUME 96.7 fL (80-100); MONOCYTES PERCENT AUTO 3.1 % (2-8); PLATELET COUNT,PLT 291 10^3/uL (150-450); RED BLOOD CELL COUNT 5.41 10^6/uL (4.6-6.2); WHITE BLOOD CELL COUNT,WBC 18.2 10^3/uL (5.0-10.0)
[2023-02-17 10:20] LABS: HEMOGLOBIN A1C 8.4 % (<5.7)
[2023-02-17] MEDS ORDERED: Ketorolac 30 MG/ML SDV IVPUSH ONE (10:20)
[2023-02-17] MEDS ORDERED: HYDROmorphone 1 MG/ML Syringe IVPUSH ONE (10:21)
[2023-02-17] MEDS ORDERED: diphenhydrAMINE 50 MG/ML SDV IVPUSH ONE (10:25)
[2023-02-17 10:29] LABS: APPEARANCE,URINE CLEAR (CLEAR); BILIRUBIN,URINE NEGATIVE (NEGATIVE); COLOR,URINE YELLOW (YELLOW); GLUCOSE,URINE 500 (NEGATIVE); KETONES,URINE NEGATIVE (NEGATIVE); LEUKOCYTE ESTERASE,URINE NEGATIVE (NEGATIVE); NITRITE,URINE NEGATIVE (NEGATIVE); OCCULT BLOOD,URINE NEGATIVE (NEGATIVE); PH,URINE 5.5 (5.0-9.0); PROTEIN,URINE NEGATIVE (NEGATIVE); UROBILINOGEN,URINE 0.2 mg/dL (0.2-1.0)
[2023-02-17 10:33] LABS: A/G RATIO 1.2; ALANINE AMINOTRANSFERASE,ALT 62 U/L (16-63); ALBUMIN 3.7 g/dL (3.4-5.0); ALKALINE PHOSPHATASE 92 U/L (46-116); ANION GAP 16.5 mEq/L (7-13); ASPARTATE AMNIOTRANSFERASE,AST 35 U/L (15-37); B-TYPE NATRIURETIC PEPTIDE,BNP < 5 pg/ml (0-100); BLOOD UREA NITROGEN,BUN 16 mg/dL (7-18); BUN/CREATININE RATIO 10.9 (No establ ref range); C-REACTIVE PROTEIN 1.09 ng/dL (<=0.50); CALCIUM 8.9 mg/dL (8.5-10.1); CARBON DIOXIDE,CO2 25 mmol/L (21-32); CHLORIDE,CL 95 mmol/L (98-107); CREATININE 1.47 mg/dL (0.70-1.30); EST CRCL DRUG DOSING (CG) 53.64 mL/min; GLUCOSE RANDOM 252 mg/dL (70-99); POTASSIUM,K 4.5 mmol/L (3.5-5.1); PROTEIN TOTAL,TP 6.7 g/dL (6.4-8.2); SODIUM,NA 132 mmol/L (136-145)
[2023-02-17 10:36] LABS: ESTIMATED GFR 55 mL/min (>=60); LACTIC ACID 3.7 mmol/L (0.4-2.0)
[2023-02-17 11:03] LABS: CORONAVIRUS COVID-19 NAA NEGATIVE (NEGATIVE); INFLUENZA A NAA NEGATIVE (NEGATIVE); INFLUENZA B NAA NEGATIVE (NEGATIVE); RESPIRATORY SYNCYTIAL VIR NAA NEGATIVE (NEGATIVE)
[2023-02-17] MEDS ORDERED: 50% Dextrose in Water 50 ML Syringe IVPUSH PRN (11:31)
[2023-02-17] MEDS ORDERED: Insulin Regular, Human 100 Units/ML 3 ML Vial SUBCUT ONE (11:31)
[2023-02-17] MEDS ORDERED: Glucagon,Human Recombinant 1 MG Vial IM PRN (11:31)
[2023-02-17] MEDS ORDERED: Ondansetron 4 MG/2 ML SDV IVPUSH PRN (14:11)
[2023-02-17] MEDS ORDERED: Docusate Sodium 100 MG Cap PO PRN (14:11)
[2023-02-17] MEDS: Sodium Chloride 0.9% 1,000 ML IV SCH (14:40)
[2023-02-17] MEDS: Acetaminophen 325 MG Tab PO PRN (16:42)
[2023-02-17] MEDS: Ibuprofen 800 MG Tab PO PRN (17:54)
[2023-02-17] MEDS: Hydrochlorothiazide 25 MG Tab PO SCH (21:54)
[2023-02-18] MEDS: Acetaminophen 325 MG Tab PO PRN ×2 (03:50→18:01)
[2023-02-18] MEDS: Sodium Chloride 0.9% 1,000 ML IV SCH ×2 (05:56→23:42)
[2023-02-18] MEDS: metFORMIN 500 MG Tab PO SCH ×2 (08:15→17:09)
[2023-02-18] MEDS: Multivitamin Tab PO SCH (08:15)
[2023-02-18] MEDS: Enoxaparin 40 MG/0.4 ML Syringe SUBCUT SCH (08:16)
[2023-02-18] MEDS: Ibuprofen 800 MG Tab PO PRN (19:41)
[2023-02-18] MEDS: Hydrochlorothiazide 25 MG Tab PO SCH (21:09)
[2023-02-19 05:52] LABS: BASOPHILS PERCENT AUTO 0.2 % (0.0-1.0); EOSINOPHILS PERCENT AUTO 2.6 % (1.0-3.0); HEMOGLOBIN 16.4 g/dL (14.0-18.0); LYMPHOCYTES PERCENT AUTO 7.2 % (20.5-50.1); MEAN CORPUSCULAR HEMOGLOBIN 32.3 pg (27.0-34.0); MEAN CORPUSCULAR HGB CONC 32.8 g/dL (33.0-35.0); MEAN CORPUSCULAR VOLUME 98.4 fL (80-100); MONOCYTES PERCENT AUTO 4.4 % (2-8); NEUTROPHILS PERCENT AUTO 85.6 % (42.2-75.2); PLATELET COUNT,PLT 278 10^3/uL (150-450); RED BLOOD CELL COUNT 5.08 10^6/uL (4.6-6.2); WHITE BLOOD CELL COUNT,WBC 14.2 10^3/uL (5.0-10.0)
[2023-02-19] MEDS: Enoxaparin 40 MG/0.4 ML Syringe SUBCUT SCH (08:18)
[2023-02-19] MEDS: metFORMIN 500 MG Tab PO SCH ×2 (08:18→17:25)
[2023-02-19] MEDS: Multivitamin Tab PO SCH (08:18)
[2023-02-19 09:02] LABS: ALANINE AMINOTRANSFERASE,ALT 58 U/L (16-63); ALBUMIN 2.9 g/dL (3.4-5.0); ALKALINE PHOSPHATASE 71 U/L (46-116); ANION GAP 15.6 mEq/L (7-13); ASPARTATE AMNIOTRANSFERASE,AST 27 U/L (15-37); BLOOD UREA NITROGEN,BUN 13 mg/dL (7-18); CALCIUM 9.1 mg/dL (8.5-10.1); CARBON DIOXIDE,CO2 26 mmol/L (21-32); CHLORIDE,CL 100 mmol/L (98-107); EST CRCL DRUG DOSING (CG) 60.65 mL/min; GLUCOSE RANDOM 163 mg/dL (70-99); MAGNESIUM 1.7 mg/dL (1.8-2.4); POTASSIUM,K 4.6 mmol/L (3.5-5.1); PROTEIN TOTAL,TP 6.3 g/dL (6.4-8.2); SODIUM,NA 137 mmol/L (136-145)
[2023-02-19 10:01] LABS: A/G RATIO 0.85; C-REACTIVE PROTEIN > 25.00 ng/dL (<=0.50); ESTIMATED GFR 64 mL/min (>=60)
[2023-02-19] MEDS ORDERED: cefTRIAXone 1 GM Vial IVPUSH ONE (11:15)
[2023-02-19] MEDS ORDERED: Magnesium Sulfate/Water 2 GM in Premix Bag 1 BAG IV ONE (14:27)
[2023-02-19] MEDS: Acetaminophen 325 MG Tab PO PRN (17:11)
[2023-02-19] MEDS ORDERED: Piperacillin/Tazobactam 4.5 GM in Sodium Chloride 0.9% 100 ML IV ONE (17:45)
[2023-02-19] MEDS: Sodium Chloride 0.9% 1,000 ML IV SCH (17:49)
[2023-02-19] MEDS ORDERED: Piperacillin/Tazobactam 3.375 GM in Sodium Chloride 0.9% 100 ML IV SCH (18:00)
[2023-02-19] MEDS: Hydrochlorothiazide 25 MG Tab PO SCH (21:00)
[2023-02-19] MEDS: Piperacillin/Tazobactam 4.5 GM in Sodium Chloride 0.9% 100 ML IV SCH (22:50)
[2023-02-20] MEDS: Sodium Chloride 0.9% 1,000 ML IV SCH ×2 (03:50→19:23)
[2023-02-20] MEDS: Acetaminophen 325 MG Tab PO PRN (04:51)
[2023-02-20] MEDS: Piperacillin/Tazobactam 4.5 GM in Sodium Chloride 0.9% 100 ML IV SCH ×3 (05:50→21:50)
[2023-02-20] MEDS: Enoxaparin 40 MG/0.4 ML Syringe SUBCUT SCH (08:43)
[2023-02-20] MEDS: metFORMIN 500 MG Tab PO SCH ×2 (08:44→17:18)
[2023-02-20] MEDS: Multivitamin Tab PO SCH (08:45)
[2023-02-20 14:42] LABS: CREATININE,URINE RAND 77.86 mg/dL (No establ ref range); MICROALBUMIN CREAT RATIO,UR 50.9 mg/g (<30 MALB/CREA RATIO); MICROALBUMIN,URINE RANDOM 39.6 mg/L (<20.0 mg/L)
[2023-02-20] MEDS: Hydrochlorothiazide 25 MG Tab PO SCH (20:09)
[2023-02-21] MEDS: Piperacillin/Tazobactam 4.5 GM in Sodium Chloride 0.9% 100 ML IV SCH ×3 (05:01→23:31)
[2023-02-21 05:56] LABS: BASOPHILS PERCENT AUTO 0.4 % (0.0-1.0); EOSINOPHILS PERCENT AUTO 3.6 % (1.0-3.0); HEMATOCRIT 48.9 % (40.0-54.0); LYMPHOCYTES PERCENT AUTO 14.7 % (20.5-50.1); MEAN CORPUSCULAR HEMOGLOBIN 32.2 pg (27.0-34.0); MEAN CORPUSCULAR HGB CONC 32.7 g/dL (33.0-35.0); MEAN CORPUSCULAR VOLUME 98.4 fL (80-100); MONOCYTES PERCENT AUTO 9.9 % (2-8); NEUTROPHILS PERCENT AUTO 71.4 % (42.2-75.2); PLATELET COUNT,PLT 291 10^3/uL (150-450); RED BLOOD CELL COUNT 4.97 10^6/uL (4.6-6.2); WHITE BLOOD CELL COUNT,WBC 9.8 10^3/uL (5.0-10.0)
[2023-02-21 06:23] LABS: A/G RATIO 0.53; ALBUMIN 2.5 g/dL (3.4-5.0); ANION GAP 13.7 mEq/L (7-13); BILIRUBIN TOTAL 0.9 mg/dL (0.2-1.0); BUN/CREATININE RATIO 9.7 (No establ ref range); C-REACTIVE PROTEIN 13.17 ng/dL (<=0.50); CALCIUM 9.2 mg/dL (8.5-10.1); CREATININE 1.45 mg/dL (0.70-1.30); EST CRCL DRUG DOSING (CG) 54.38 mL/min; MAGNESIUM 1.8 mg/dL (1.8-2.4); POTASSIUM,K 4.7 mmol/L (3.5-5.1); PROTEIN TOTAL,TP 7.2 g/dL (6.4-8.2)
[2023-02-21] MEDS: Sodium Chloride 0.9% 1,000 ML IV SCH (07:24)
[2023-02-21] MEDS: Acetaminophen 325 MG Tab PO PRN (07:32)
[2023-02-21] MEDS: metFORMIN 500 MG Tab PO SCH ×2 (07:33→17:19)
[2023-02-21] MEDS: Enoxaparin 40 MG/0.4 ML Syringe SUBCUT SCH (09:35)
[2023-02-21] MEDS: Multivitamin Tab PO SCH (09:35)
[2023-02-21] MEDS: Hydrochlorothiazide 25 MG Tab PO SCH (21:05)
[2023-02-22] MEDS: Piperacillin/Tazobactam 4.5 GM in Sodium Chloride 0.9% 100 ML IV SCH ×3 (05:25→22:05)
[2023-02-22 06:23] LABS: HEMATOCRIT 49.9 % (40.0-54.0); HEMOGLOBIN 16.4 g/dL (14.0-18.0); MEAN CORPUSCULAR HEMOGLOBIN 32.2 pg (27.0-34.0); MEAN CORPUSCULAR HGB CONC 32.9 g/dL (33.0-35.0); PLATELET COUNT,PLT 310 10^3/uL (150-450); RED BLOOD CELL COUNT 5.09 10^6/uL (4.6-6.2); WHITE BLOOD CELL COUNT,WBC 10.1 10^3/uL (5.0-10.0)
[2023-02-22 06:32] LABS: BASOPHILS PERCENT AUTO 0.4 % (0.0-1.0); EOSINOPHILS PERCENT AUTO 4.4 % (1.0-3.0); LYMPHOCYTES PERCENT AUTO 16.1 % (20.5-50.1); MONOCYTES PERCENT AUTO 9.6 % (2-8); NEUTROPHILS PERCENT AUTO 69.5 % (42.2-75.2)
[2023-02-22 06:39] LABS: BAND PERCENT MAN 2 %; EOSINOPHILS PERCENT MAN 5 % (1-3); LYMPHOCYTES PERCENT MAN 14 % (20-50); MONOCYTES PERCENT MAN 6 % (2-8); SEG NEUTROPHILS PERCENT MAN 73 % (42-75)
[2023-02-22 06:41] LABS: ALBUMIN 2.6 g/dL (3.4-5.0); ANION GAP 12.6 mEq/L (7-13); BILIRUBIN TOTAL 0.8 mg/dL (0.2-1.0); BUN/CREATININE RATIO 9.2 (No establ ref range); C-REACTIVE PROTEIN 7.72 ng/dL (<=0.50); CALCIUM 9.5 mg/dL (8.5-10.1); CREATININE 1.53 mg/dL (0.70-1.30); EST CRCL DRUG DOSING (CG) 51.54 mL/min; MAGNESIUM 1.8 mg/dL (1.8-2.4); POTASSIUM,K 4.6 mmol/L (3.5-5.1); PROTEIN TOTAL,TP 7.2 g/dL (6.4-8.2)
[2023-02-22 06:46] LABS: A/G RATIO 0.57
[2023-02-22] MEDS: Multivitamin Tab PO SCH (09:47)
[2023-02-22] MEDS: metFORMIN 500 MG Tab PO SCH ×2 (09:47→17:11)
[2023-02-22] MEDS: Enoxaparin 40 MG/0.4 ML Syringe SUBCUT SCH (09:48)
[2023-02-22] MEDS: Hydrochlorothiazide 25 MG Tab PO SCH (20:20)
[2023-02-23] MEDS: Acetaminophen 325 MG Tab PO PRN (01:26)
[2023-02-23] MEDS: Piperacillin/Tazobactam 4.5 GM in Sodium Chloride 0.9% 100 ML IV SCH ×3 (06:03→22:13)
[2023-02-23 06:30] LABS: BASOPHILS PERCENT AUTO 0.6 % (0.0-1.0); EOSINOPHILS PERCENT AUTO 4.6 % (1.0-3.0); HEMATOCRIT 52.3 % (40.0-54.0); LYMPHOCYTES PERCENT AUTO 18.5 % (20.5-50.1); MEAN CORPUSCULAR HGB CONC 32.5 g/dL (33.0-35.0); MEAN CORPUSCULAR VOLUME 98.5 fL (80-100); MONOCYTES PERCENT AUTO 9.2 % (2-8); NEUTROPHILS PERCENT AUTO 67.1 % (42.2-75.2); PLATELET COUNT,PLT 321 10^3/uL (150-450); RED BLOOD CELL COUNT 5.31 10^6/uL (4.6-6.2); WHITE BLOOD CELL COUNT,WBC 10.2 10^3/uL (5.0-10.0)
[2023-02-23 07:10] LABS: A/G RATIO 0.56; ALBUMIN 2.7 g/dL (3.4-5.0); ANION GAP 11.8 mEq/L (7-13); BILIRUBIN TOTAL 0.7 mg/dL (0.2-1.0); BUN/CREATININE RATIO 10.5 (No establ ref range); C-REACTIVE PROTEIN 4.93 ng/dL (<=0.50); CALCIUM 9.6 mg/dL (8.5-10.1); CREATININE 1.62 mg/dL (0.70-1.30); EST CRCL DRUG DOSING (CG) 48.67 mL/min; POTASSIUM,K 4.8 mmol/L (3.5-5.1); PROTEIN TOTAL,TP 7.5 g/dL (6.4-8.2)
[2023-02-23] MEDS: metFORMIN 500 MG Tab PO SCH (08:39)
[2023-02-23] MEDS: Enoxaparin 40 MG/0.4 ML Syringe SUBCUT SCH (08:39)
[2023-02-23] MEDS: Multivitamin Tab PO SCH (08:39)
[2023-02-23] MEDS ORDERED: Lisinopril 5 MG Tab PO SCH (09:00)
[2023-02-23] MEDS ORDERED: Sodium Chloride 0.9% 1,000 ML IV SCH (09:30)
[2023-02-23] MEDS ORDERED: Hydrochlorothiazide 25 MG Tab PO SCH (21:00)
[2023-02-24] MEDS: Piperacillin/Tazobactam 4.5 GM in Sodium Chloride 0.9% 100 ML IV SCH (05:04)
[2023-02-24] MEDS ORDERED: metFORMIN 500 MG Tab PO SCH (08:00)
[2023-02-24] MEDS: Multivitamin Tab PO SCH (08:22)
[2023-02-24] MEDS: Enoxaparin 40 MG/0.4 ML Syringe SUBCUT SCH (08:22)
[2023-02-24 08:34] LABS: BASOPHILS PERCENT AUTO 0.6 % (0.0-1.0); EOSINOPHILS PERCENT AUTO 4.9 % (1.0-3.0); HEMATOCRIT 50.4 % (40.0-54.0); HEMOGLOBIN 16.3 g/dL (14.0-18.0); LYMPHOCYTES PERCENT AUTO 20.9 % (20.5-50.1); MEAN CORPUSCULAR HEMOGLOBIN 31.9 pg (27.0-34.0); MEAN CORPUSCULAR HGB CONC 32.3 g/dL (33.0-35.0); MEAN CORPUSCULAR VOLUME 98.6 fL (80-100); MONOCYTES PERCENT AUTO 8.3 % (2-8); NEUTROPHILS PERCENT AUTO 65.3 % (42.2-75.2); PLATELET COUNT,PLT 322 10^3/uL (150-450); RED BLOOD CELL COUNT 5.11 10^6/uL (4.6-6.2); WHITE BLOOD CELL COUNT,WBC 9.9 10^3/uL (5.0-10.0)
[2023-02-24 08:39] LABS: ALBUMIN 2.6 g/dL (3.4-5.0); ANION GAP 10.5 mEq/L (7-13); BILIRUBIN TOTAL 0.7 mg/dL (0.2-1.0); BUN/CREATININE RATIO 11.3 (No establ ref range); C-REACTIVE PROTEIN 2.56 ng/dL (<=0.50); CALCIUM 8.7 mg/dL (8.5-10.1); CREATININE 1.51 mg/dL (0.70-1.30); EST CRCL DRUG DOSING (CG) 52.22 mL/min; MAGNESIUM 2.1 mg/dL (1.8-2.4); POTASSIUM,K 4.5 mmol/L (3.5-5.1); PROTEIN TOTAL,TP 6.9 g/dL (6.4-8.2)
[2023-02-24 08:41] LABS: A/G RATIO 0.6
[2023-02-24 12:14] VITALS: BP 133/89; PULSE 83
[2023-02-24] MEDS ORDERED: Hydrochlorothiazide 25 MG Tab PO SCH (21:00)
[2023-02-25] MEDS ORDERED: Lisinopril 5 MG Tab PO SCH (09:00)
== END 2023-02-24 11:45 | disposition home or self-care (01) | DRG 383 ==
LOC: DL.ED 08:42 → DL.MS 12:45
PROVIDERS: ADMIT Internal Medicine; ATTEND Internal Medicine
DX: L03.116 Cellulitis of left lower limb (principal); E78.5 Hyperlipidemia, unspecified; E66.01 Morbid (severe) obesity due to excess calories; E87.1 Hypo-osmolality and hyponatremia; E87.8 Other disorders of electrolyte and fluid balance, not elsewhere classified; N17.9 Acute kidney failure, unspecified; E87.20 Acidosis, unspecified; E83.42 Hypomagnesemia; E11.22 Type 2 diabetes mellitus with diabetic chronic kidney disease; I12.9 Hypertensive chronic kidney disease with stage 1 through stage 4 chronic kidney disease, or unspecified chronic kidney disease; N18.30 Chronic kidney disease, stage 3 unspecified; E11.65 Type 2 diabetes mellitus with hyperglycemia; Z68.37 Body mass index [BMI] 37.0-37.9, adult; Z88.0 Allergy status to penicillin; Z79.84 Long term (current) use of oral hypoglycemic drugs; Z79.899 Other long term (current) drug therapy; Z86.16 Personal history of COVID-19; Z11.52 Encounter for screening for COVID-19
CPT/HCPCS: 0241U; 36415; 80053; 80061; 80202; 81003; 82043; 82947; 83036; 83605; 83735; 83880; 85025; 86140; 87040; 93971; 96361; 96365; 96366; 96375; 99223; 99232; 99238; 99284; 99284-25; A9270-GY; J0696; J1170; J1200; J1650; J1815-GY; J1885; J2543; J3370; J3475; J3490; J7030; J7050

== ENCOUNTER 2023-05-03 17:53 | Observation (INO) | payer BC ==
[2023-05-03] MEDS: Sodium Chloride 0.9% 10 ML Syringe FLUSH PRN (18:56)
[2023-05-03 19:16] LABS: BASOPHILS PERCENT AUTO 0.5 % (0.0-1.0); EOSINOPHILS PERCENT AUTO 2.3 % (1.0-3.0); HEMATOCRIT 52.8 % (40.0-54.0); HEMOGLOBIN 17.9 g/dL (14.0-18.0); LYMPHOCYTES PERCENT AUTO 14.4 % (20.5-50.1); MEAN CORPUSCULAR HEMOGLOBIN 32.1 pg (27.0-34.0); MEAN CORPUSCULAR HGB CONC 33.9 g/dL (33.0-35.0); MEAN CORPUSCULAR VOLUME 94.8 fL (80-100); MONOCYTES PERCENT AUTO 7.4 % (2-8); NEUTROPHILS PERCENT AUTO 75.4 % (42.2-75.2); PLATELET COUNT,PLT 319 10^3/uL (150-450); RED BLOOD CELL COUNT 5.57 10^6/uL (4.6-6.2); WHITE BLOOD CELL COUNT,WBC 10.2 10^3/uL (5.0-10.0)
[2023-05-03 19:35] LABS: A/G RATIO 1.1; ALBUMIN 3.8 g/dL (3.4-5.0); ANION GAP 12.9 mEq/L (7-13); BILIRUBIN TOTAL 0.5 mg/dL (0.2-1.0); BUN/CREATININE RATIO 9.9 (No establ ref range); CALCIUM 9.2 mg/dL (8.5-10.1); CREATININE 1.42 mg/dL (0.70-1.30); EST CRCL DRUG DOSING (CG) 55.53 mL/min; POTASSIUM,K 3.9 mmol/L (3.5-5.1); PROTEIN TOTAL,TP 7.3 g/dL (6.4-8.2)
[2023-05-03] MEDS: cefTRIAXone 1 GM Vial IVPUSH ONE (20:35)
[2023-05-03] MEDS: Lactated Ringers 1,000 ML IV SCH (22:10)
[2023-05-03] MEDS ORDERED: Metoprolol Tartrate 5 MG/5 ML SDV IVPUSH PRN (23:34)
[2023-05-03] MEDS ORDERED: hydrALAZINE 20 MG/ML SDV IVPUSH PRN (23:34)
[2023-05-03] MEDS ORDERED: Polyethylene Glycol 3350 Powder 17 GM Packet PO PRN (23:53)
[2023-05-03] MEDS ORDERED: Zolpidem 5 MG Tab PO PRN (23:53)
[2023-05-03] MEDS ORDERED: Ondansetron 4 MG/2 ML SDV IVPUSH PRN (23:53)
[2023-05-03] MEDS ORDERED: Albuterol/Ipratropium 3.0-0.5 MG/3 ML Neb Soln NEB PRN (23:53)
[2023-05-03] MEDS ORDERED: HYDROmorphone 0.5 MG/0.5 ML Syringe IVPUSH PRN (23:53)
[2023-05-03] MEDS ORDERED: Naloxone 2 MG/2 ML Syringe IVPUSH PRN (23:53)
[2023-05-03] MEDS ORDERED: Acetaminophen/oxyCODONE 325-5 MG Tab PO PRN (23:53)
[2023-05-03] MEDS ORDERED: Magnesium Hydroxide 400 MG/5 ML Susp 30 ML Cup PO PRN (23:53)
[2023-05-03] MEDS ORDERED: Acetaminophen 325 MG Tab PO PRN (23:53)
[2023-05-04 06:52] LABS: BASOPHILS PERCENT AUTO 0.6 % (0.0-1.0); EOSINOPHILS PERCENT AUTO 3.5 % (1.0-3.0); HEMATOCRIT 50.2 % (40.0-54.0); HEMOGLOBIN 16.6 g/dL (14.0-18.0); LYMPHOCYTES PERCENT AUTO 21.2 % (20.5-50.1); MEAN CORPUSCULAR HEMOGLOBIN 31.9 pg (27.0-34.0); MEAN CORPUSCULAR HGB CONC 33.1 g/dL (33.0-35.0); MEAN CORPUSCULAR VOLUME 96.5 fL (80-100); MONOCYTES PERCENT AUTO 12.7 % (2-8); PLATELET COUNT,PLT 274 10^3/uL (150-450)
[2023-05-04 07:08] LABS: ALBUMIN 3.2 g/dL (3.4-5.0); ANION GAP 6.3 mEq/L (7-13); BILIRUBIN TOTAL 0.5 mg/dL (0.2-1.0); BUN/CREATININE RATIO 8.5 (No establ ref range); CALCIUM 8.8 mg/dL (8.5-10.1); CREATININE 1.42 mg/dL (0.70-1.30); EST CRCL DRUG DOSING (CG) 55.53 mL/min; MAGNESIUM 1.9 mg/dL (1.8-2.4); POTASSIUM,K 4.3 mmol/L (3.5-5.1); PROTEIN TOTAL,TP 6.2 g/dL (6.4-8.2)
[2023-05-04 07:09] LABS: A/G RATIO 1.07
[2023-05-04] MEDS: metFORMIN 500 MG Tab PO SCH (09:35)
[2023-05-04] MEDS: Saccharomyces Boulardii (Probiotic) 250 MG Cap PO SCH (09:35)
[2023-05-04] MEDS: cefTRIAXone 1 GM Vial IVPUSH SCH (09:35)
[2023-05-04] MEDS: Lisinopril 5 MG Tab PO SCH (09:35)
[2023-05-04] MEDS: VANCOmycin 1.5 GM/300 ML 1.5 GM in Premix Bag 1 BAG IV SCH (09:39)
[2023-05-04] MEDS: Pantoprazole 40 MG Tab.CR PO SCH ×2 (10:48→11:11)
[2023-05-04] MEDS: Empagliflozin 25 MG Tab PO SCH (10:48)
[2023-05-04] MEDS ORDERED: VANCOmycin 1.5 GM/300 ML 1.5 GM in Premix Bag 1 BAG IV SCH (19:00)
[2023-05-04] MEDS: Hydrochlorothiazide 25 MG Tab PO SCH (20:55)
[2023-05-05 06:45] LABS: ALBUMIN 3.7 g/dL (3.4-5.0); ANION GAP 11.5 mEq/L (7-13); BILIRUBIN TOTAL 0.5 mg/dL (0.2-1.0); BUN/CREATININE RATIO 10.3 (No establ ref range); CALCIUM 9.6 mg/dL (8.5-10.1); CREATININE 1.56 mg/dL (0.70-1.30); EST CRCL DRUG DOSING (CG) 50.54 mL/min; POTASSIUM,K 4.5 mmol/L (3.5-5.1); PROTEIN TOTAL,TP 7.3 g/dL (6.4-8.2)
[2023-05-05 06:56] LABS: BASOPHILS PERCENT AUTO 0.6 % (0.0-1.0); EOSINOPHILS PERCENT AUTO 4.6 % (1.0-3.0); MEAN CORPUSCULAR HEMOGLOBIN 32.3 pg (27.0-34.0); MEAN CORPUSCULAR HGB CONC 33.3 g/dL (33.0-35.0); MEAN CORPUSCULAR VOLUME 96.8 fL (80-100); MONOCYTES PERCENT AUTO 13.4 % (2-8); NEUTROPHILS PERCENT AUTO 54.4 % (42.2-75.2); PLATELET COUNT,PLT 316 10^3/uL (150-450); RED BLOOD CELL COUNT 5.58 10^6/uL (4.6-6.2); WHITE BLOOD CELL COUNT,WBC 8.3 10^3/uL (5.0-10.0)
[2023-05-05 08:29] VITALS: BP 133/72; PULSE 104
[2023-05-05] MEDS: Sennosides/Docusate Sodium 50-8.6 MG Tab PO PRN (08:38)
[2023-05-05] MEDS ORDERED: Vancomycin 1.25 GM in Premix Bag 1 BAG IV SCH (12:00)
== END 2023-05-05 11:25 | disposition home or self-care (01) ==
LOC: DL.ED 17:53 → DL.MS 21:33
PROVIDERS: ADMIT Internal Medicine; ATTEND Emergency Medicine
DX: L03.116 Cellulitis of left lower limb (principal); I12.9 Hypertensive chronic kidney disease with stage 1 through stage 4 chronic kidney disease, or unspecified chronic kidney disease; E11.22 Type 2 diabetes mellitus with diabetic chronic kidney disease; N18.32 Chronic kidney disease, stage 3b; E78.5 Hyperlipidemia, unspecified; Z79.84 Long term (current) use of oral hypoglycemic drugs; Z79.899 Other long term (current) drug therapy; Z88.0 Allergy status to penicillin
CPT/HCPCS: 36415; 73590; 80053; 80202; 83605; 83735; 85025; 86140; 87040; 93971; 96361; 96365; 96366; 96375; 96376; 99284; A9270; G0378; J0696; J3370; J7050; J7120; J3490

== ENCOUNTER 2023-07-07 15:52 | Emergency (ER) | payer BC ==
[2023-07-07 16:22] LABS: BASOPHILS PERCENT AUTO 0.3 % (0.0-1.0); EOSINOPHILS PERCENT AUTO 0.9 % (1.0-3.0); HEMATOCRIT 50.5 % (40.0-54.0); HEMOGLOBIN 16.6 g/dL (14.0-18.0); LYMPHOCYTES PERCENT AUTO 7.7 % (20.5-50.1); MEAN CORPUSCULAR HEMOGLOBIN 32.6 pg (27.0-34.0); MEAN CORPUSCULAR HGB CONC 32.9 g/dL (33.0-35.0); MEAN CORPUSCULAR VOLUME 99.2 fL (80-100); MONOCYTES PERCENT AUTO 6.9 % (2-8); NEUTROPHILS PERCENT AUTO 84.2 % (42.2-75.2); PLATELET COUNT,PLT 312 10^3/uL (150-450); RED BLOOD CELL COUNT 5.09 10^6/uL (4.6-6.2); WHITE BLOOD CELL COUNT,WBC 19.6 10^3/uL (5.0-10.0)
[2023-07-07] MEDS: levETIRAcetam in NaCl (iso-os) 1,000 MG in Premix Bag 1 BAG IV ONE (16:41)
[2023-07-07] MEDS: Aspirin 81 MG Tab.Chew PO ONE ×2 (16:42→17:13)
[2023-07-07] MEDS: Sodium Chloride 0.9% 10 ML Syringe FLUSH PRN (16:42)
[2023-07-07] MEDS: Sodium Chloride 0.9% 1,000 ML IV ONE ×3 (16:42→19:27)
[2023-07-07 16:44] LABS: A/G RATIO 0.9; ALBUMIN 3.4 g/dL (3.4-5.0); ANION GAP 11.3 mEq/L (7-13); BILIRUBIN TOTAL 0.9 mg/dL (0.2-1.0); BUN/CREATININE RATIO 13.6 (No establ ref range); CALCIUM 8.9 mg/dL (8.5-10.1); CREATININE 1.54 mg/dL (0.70-1.30); EST CRCL DRUG DOSING (CG) 59.81 mL/min; POTASSIUM,K 4.3 mmol/L (3.5-5.1)
[2023-07-07] MEDS: cefTRIAXone 1 GM Vial IVPUSH ONE (17:17)
[2023-07-07 18:28] VITALS: BP 111/60; PULSE 89
[2023-07-07 18:32] LABS: MAGNESIUM 1.5 mg/dL (1.8-2.4)
[2023-07-07 18:39] LABS: B-TYPE NATRIURETIC PEPTIDE,BNP < 5 pg/ml (0-100)
[2023-07-07 18:59] LABS: AMPHETAMINES,URINE NEGATIVE (NEGATIVE); APPEARANCE,URINE CLEAR (CLEAR); BARBITURATES,URINE NEGATIVE (NEGATIVE); BENZODIAZEPINE,URINE NEGATIVE (NEGATIVE); BILIRUBIN,URINE NEGATIVE (NEGATIVE); COLOR,URINE YELLOW (YELLOW); GLUCOSE,URINE NEGATIVE (NEGATIVE); KETONES,URINE 15 (NEGATIVE); LEUKOCYTE ESTERASE,URINE NEGATIVE (NEGATIVE); MDMA (ECSTASY), URINE NEGATIVE (NEGATIVE); METHADONE,URINE NEGATIVE (NEGATIVE); METHAMPHETAMINES,URINE NEGATIVE (NEGATIVE); NITRITE,URINE NEGATIVE (NEGATIVE); OCCULT BLOOD,URINE NEGATIVE (NEGATIVE); OPIATES,URINE NEGATIVE (NEGATIVE); OXYCODONE,URINE NEGATIVE (NEGATIVE); PH,URINE 6.5 (5.0-9.0); PHENCYCLIDINE,URINE NEGATIVE (NEGATIVE); PROTEIN,URINE NEGATIVE (NEGATIVE); TCA,URINE NEGATIVE (NEGATIVE); UROBILINOGEN,URINE 0.2 mg/dL (0.2-1.0)
== END 2023-07-07 20:37 ==
LOC: DL.ED 15:52
DX: A41.9 Sepsis, unspecified organism (principal); R65.20 Severe sepsis without septic shock; L03.116 Cellulitis of left lower limb; I10 Essential (primary) hypertension; R55 Syncope and collapse; E66.9 Obesity, unspecified; Z86.16 Personal history of COVID-19; Z79.899 Other long term (current) drug therapy; Z79.82 Long term (current) use of aspirin; Z68.28 Body mass index [BMI] 28.0-28.9, adult
CPT/HCPCS: 36415; 70450; 71045; 80053; 80305; 81003; 82947; 83605; 83735; 83880; 84484; 85025; 85379; 87040; 93005; 93010; 96361; 96365; 96375; 99285; A9270; J0696; J1953; J3370; J7030; J7050; J3490

== ENCOUNTER 2024-12-08 17:06 | Inpatient (IN) | payer BC ==
[2024-12-08] MEDS ORDERED: Sodium Chloride 0.9% 10 ML Syringe FLUSH PRN (19:14)
[2024-12-08 19:59] LABS: BASOPHILS PERCENT AUTO 0.2 % (0.0-1.0); EOSINOPHILS PERCENT AUTO 0.2 % (1.0-3.0); LYMPHOCYTES PERCENT AUTO 2.7 % (20.5-50.1); MONOCYTES PERCENT AUTO 5.3 % (2-8); NEUTROPHILS PERCENT AUTO 91.6 % (42.2-75.2); PLATELET COUNT,PLT 305 10^3/uL (150-450); RED BLOOD CELL COUNT 6.04 10^6/uL (4.6-6.2); WHITE BLOOD CELL COUNT,WBC 19.2 10^3/uL (5.0-10.0)
[2024-12-08 20:30] LABS: A/G RATIO 1.3; ALANINE AMINOTRANSFERASE,ALT 104.0 U/L (16-63); ASPARTATE AMNIOTRANSFERASE,AST 39.0 U/L (15-37); BILIRUBIN TOTAL 1.2 mg/dL (0.2-1.0); BLOOD UREA NITROGEN,BUN 17.0 mg/dL (7-18); CARBON DIOXIDE,CO2 27.0 mmol/L (21-32); CREATININE 1.36 mg/dL (0.70-1.30); EST CRCL DRUG DOSING (CG) 56.58 mL/min; GLUCOSE RANDOM 260.0 mg/dL (70-99); POTASSIUM,K 4.2 mmol/L (3.5-5.1); PROTEIN TOTAL,TP 7.5 g/dL (6.4-8.2)
[2024-12-08 20:33] LABS: CHLORIDE,CL 96.0 mmol/L (98-107); SODIUM,NA 136.0 mmol/L (136-145)
[2024-12-08 20:34] LABS: ESTIMATED GFR 60.0 mL/min (>=60); LACTIC ACID 3.4 mmol/L (0.4-2.0)
[2024-12-08] MEDS ORDERED: Metoprolol Tartrate 5 MG/5 ML SDV IVPUSH PRN (22:20)
[2024-12-08] MEDS ORDERED: hydrALAZINE 20 MG/ML SDV IVPUSH PRN (22:20)
[2024-12-08] MEDS ORDERED: Ondansetron 4 MG/2 ML SDV IVPUSH PRN (22:22)
[2024-12-08] MEDS ORDERED: Magnesium Hydroxide 400 MG/5 ML Susp 30 ML Cup PO PRN (22:22)
[2024-12-08] MEDS ORDERED: 50% Dextrose in Water 50 ML Syringe IVPUSH PRN (22:26)
[2024-12-08] MEDS ORDERED: Pharmacy Consult Order SCH (22:30)
[2024-12-08] MEDS: Acetaminophen/HYDROcodone 325-10 MG Tab PO PRN (23:22)
[2024-12-09 00:13] LABS: LACTIC ACID 3.5 mmol/L (0.4-2.0)
[2024-12-09 05:33] LABS: APPEARANCE,URINE CLEAR (CLEAR); GLUCOSE,URINE >=1000 (NEGATIVE); OCCULT BLOOD,URINE NEGATIVE (NEGATIVE)
[2024-12-09 06:54] LABS: BASOPHILS PERCENT AUTO 0.1 % (0.0-1.0); EOSINOPHILS PERCENT AUTO 0.0 % (1.0-3.0); LYMPHOCYTES PERCENT AUTO 5.4 % (20.5-50.1); MONOCYTES PERCENT AUTO 3.5 % (2-8); NEUTROPHILS PERCENT AUTO 91.0 % (42.2-75.2); PLATELET COUNT,PLT 254 10^3/uL (150-450); RED BLOOD CELL COUNT 4.99 10^6/uL (4.6-6.2); WHITE BLOOD CELL COUNT,WBC 14.9 10^3/uL (5.0-10.0)
[2024-12-09 07:09] LABS: A/G RATIO 1.03; ALANINE AMINOTRANSFERASE,ALT 67.0 U/L (16-63); ASPARTATE AMNIOTRANSFERASE,AST 22.0 U/L (15-37); BILIRUBIN TOTAL 0.7 mg/dL (0.2-1.0); BLOOD UREA NITROGEN,BUN 15.0 mg/dL (7-18); CARBON DIOXIDE,CO2 28.0 mmol/L (21-32); CHLORIDE,CL 103.0 mmol/L (98-107); CHOLESTEROL HDL 32.0 mg/dL (40-59); CHOLESTEROL LDL CALCULATED 86.0 mg/dL (0-100); CHOLESTEROL TOTAL 143.0 mg/dL (0-199); CREATININE 1.59 mg/dL (0.70-1.30); EST CRCL DRUG DOSING (CG) 48.4 mL/min; ESTIMATED GFR 50.0 mL/min (>=60); GLUCOSE RANDOM 190.0 mg/dL (70-99); POTASSIUM,K 3.9 mmol/L (3.5-5.1); PROTEIN TOTAL,TP 5.9 g/dL (6.4-8.2); SODIUM,NA 139.0 mmol/L (136-145)
[2024-12-09] MEDS: Magnesium Sulfate 2 GM/50 mL 2 GM in Premix Bag 1 BAG IV ONE (08:26)
[2024-12-09] MEDS: VANCOmycin 1.5 GM/300 ML 1.5 GM in Premix Bag 1 BAG IV SCH (21:29)
[2024-12-09] MEDS: Dexamethasone 4 MG/ML SDV IVPUSH ONE (22:27)
[2024-12-09] MEDS: Ketorolac 30 MG/ML SDV IVPUSH ONE (22:47)
[2024-12-09] MEDS: Bumetanide 1 MG/4 ML MDV IVPUSH ONE (22:49)
[2024-12-10 06:33] LABS: BASOPHILS PERCENT AUTO 0.1 % (0.0-1.0); EOSINOPHILS PERCENT AUTO 0.0 % (1.0-3.0); LYMPHOCYTES PERCENT AUTO 7.4 % (20.5-50.1); MONOCYTES PERCENT AUTO 4.0 % (2-8); NEUTROPHILS PERCENT AUTO 88.5 % (42.2-75.2); PLATELET COUNT,PLT 243 10^3/uL (150-450); RED BLOOD CELL COUNT 5.29 10^6/uL (4.6-6.2); WHITE BLOOD CELL COUNT,WBC 11.8 10^3/uL (5.0-10.0)
[2024-12-10 06:52] LABS: ALANINE AMINOTRANSFERASE,ALT 69 U/L (16-63); ASPARTATE AMNIOTRANSFERASE,AST 26 U/L (15-37); BILIRUBIN TOTAL 0.7 mg/dL (0.2-1.0); BLOOD UREA NITROGEN,BUN 21 mg/dL (7-18); CARBON DIOXIDE,CO2 26 mmol/L (21-32); CHLORIDE,CL 102 mmol/L (98-107); CREATININE 1.69 mg/dL (0.70-1.30); EST CRCL DRUG DOSING (CG) 45.53 mL/min; GLUCOSE RANDOM 171 mg/dL (70-99); POTASSIUM,K 4.3 mmol/L (3.5-5.1); PROTEIN TOTAL,TP 7.0 g/dL (6.4-8.2); SODIUM,NA 139 mmol/L (136-145)
[2024-12-10 07:05] LABS: A/G RATIO 0.79; ESTIMATED GFR 46 mL/min (>=60)
[2024-12-10] MEDS: Heparin Sodium 5,000 Units/ML Vial SUBCUT SCH (09:08)
[2024-12-10] MEDS: Bumetanide 1 MG/4 ML MDV IVPUSH ONE (13:51)
[2024-12-10 19:21] LABS: CREATININE 1.54 mg/dL (0.70-1.30); EST CRCL DRUG DOSING (CG) 49.97 mL/min
[2024-12-10 19:22] LABS: ESTIMATED GFR 52.0 mL/min (>=60)
[2024-12-11 05:54] LABS: BASOPHILS PERCENT AUTO 0.1 % (0.0-1.0); EOSINOPHILS PERCENT AUTO 0.1 % (1.0-3.0); LYMPHOCYTES PERCENT AUTO 7.0 % (20.5-50.1); MONOCYTES PERCENT AUTO 3.7 % (2-8); NEUTROPHILS PERCENT AUTO 89.1 % (42.2-75.2); PLATELET COUNT,PLT 286 10^3/uL (150-450); RED BLOOD CELL COUNT 4.98 10^6/uL (4.6-6.2); WHITE BLOOD CELL COUNT,WBC 13.1 10^3/uL (5.0-10.0)
[2024-12-11 06:14] LABS: A/G RATIO 0.78; ALANINE AMINOTRANSFERASE,ALT 55.0 U/L (16-63); ASPARTATE AMNIOTRANSFERASE,AST 18.0 U/L (15-37); BILIRUBIN TOTAL 0.5 mg/dL (0.2-1.0); BLOOD UREA NITROGEN,BUN 29.0 mg/dL (7-18); CARBON DIOXIDE,CO2 26.0 mmol/L (21-32); CHLORIDE,CL 103.0 mmol/L (98-107); CREATININE 1.4 mg/dL (0.70-1.30); EST CRCL DRUG DOSING (CG) 54.96 mL/min; ESTIMATED GFR 58.0 mL/min (>=60); GLUCOSE RANDOM 219.0 mg/dL (70-99); POTASSIUM,K 4.2 mmol/L (3.5-5.1); PROTEIN TOTAL,TP 6.6 g/dL (6.4-8.2); SODIUM,NA 140.0 mmol/L (136-145)
[2024-12-11] MEDS: Lactulose Soln 10 GM/15 ML 30 ML UD Cup PO ONE (10:06)
[2024-12-11 12:56] VITALS: BP 139/89; PULSE 62
== END 2024-12-11 11:40 | disposition home or self-care (01) | DRG 720 ==
LOC: DL.ED 17:06 → DL.MS 21:02
PROVIDERS: ADMIT Internal Medicine; ATTEND Internal Medicine
PROC: 3E03329 Introduction of Other Anti-infective into Peripheral Vein, Percutaneous Approach (ICD-10-PCS; principal; 2024-12-08)
PROC: 3E0333Z Introduction of Anti-inflammatory into Peripheral Vein, Percutaneous Approach (ICD-10-PCS; 2024-12-09)
DX: A41.9 Sepsis, unspecified organism (principal); E87.20 Acidosis, unspecified; L03.116 Cellulitis of left lower limb; R65.20 Severe sepsis without septic shock; E78.5 Hyperlipidemia, unspecified; I12.9 Hypertensive chronic kidney disease with stage 1 through stage 4 chronic kidney disease, or unspecified chronic kidney disease; E11.22 Type 2 diabetes mellitus with diabetic chronic kidney disease; N18.30 Chronic kidney disease, stage 3 unspecified; N52.9 Male erectile dysfunction, unspecified; E66.9 Obesity, unspecified; E11.628 Type 2 diabetes mellitus with other skin complications; E87.8 Other disorders of electrolyte and fluid balance, not elsewhere classified; E11.65 Type 2 diabetes mellitus with hyperglycemia; E80.6 Other disorders of bilirubin metabolism; R74.01 Elevation of levels of liver transaminase levels; E66.811 Obesity, class 1; E88.810 Metabolic syndrome; E83.42 Hypomagnesemia; Z79.899 Other long term (current) drug therapy; Z86.16 Personal history of COVID-19; Z79.84 Long term (current) use of oral hypoglycemic drugs; Z68.34 Body mass index [BMI] 34.0-34.9, adult; Z98.890 Other specified postprocedural states
CPT/HCPCS: 36415; 71045; 80053; 80061; 80202; 81003; 82565; 82947; 83036; 83605; 83735; 85025; 85379; 85651; 86140; 87040; 93971; 96361; 96374; 99232; 99239; 99284-25; A9270-GY; J0692; J0696; J1100; J1644; J1650; J1815-GY; J1885; J1939; J2470; J3373; J3375; J3475; J7030; J7040; J7050; J8540